=== PATIENT | male | born 1965 | race Caucasian/White ===

== ENCOUNTER 2021-06-01 09:19 | Outpatient (CLI) | payer OTHER, SELFPAY ==
[2021-06-01 10:13] LABS: Cholesterol 191 mg/dL (0-200); HDL Direct 27 mg/dL; Triglycerides 325 mg/dL (<150)
[2021-06-01 10:23] LABS: LDL Cholesterol Direct 107 mg/dL
[2021-06-01 10:45] LABS: Prostate Specific Antigen 6.2 ng/mL (< OR = 4.0)
[2021-06-06 15:09] LABS: Testosterone Free 20.6 pg/mL (35.0-155.0); Testosterone Total 138 ng/dL (250-1100)
== END 2021-06-01 09:20 | disposition home or self-care (01) ==
LOC: ANHLAB 09:23
PROVIDERS: PCP Family Medicine; Visit Provider Physician Assistant Medical
DX: Z13.220 Encounter for screening for lipoid disorders (principal); N40.0 Benign prostatic hyperplasia without lower urinary tract symptoms; R91.8 Other nonspecific abnormal finding of lung field; E29.1 Testicular hypofunction
CPT/HCPCS: 36415; 80061; 84153; 84402; 84403; G0103

== ENCOUNTER 2021-06-29 13:19 | Outpatient (CLI) | payer OTHER, SELFPAY ==
--- NOTE | ~2021-06-29 | XR_ITS ---
EXAMINATION: XR chest 2V 06/29/2021 13:51 INDICATION: Follow-up blood clot from Covid PROCEDURE: 2 view chest COMPARISON: 08/11/2018 FINDINGS: The lungs are clear. The cardiomediastinal silhouette is within normal limits. There are no pleural effusions. There is no pneumothorax suspected. IMPRESSION: 1: NO ACUTE CARDIOPULMONARY DISEASE. Reviewed, dictated and finalized at location B.
== END 2021-06-29 13:20 | disposition home or self-care (01) ==
PROVIDERS: PCP Family Medicine; Visit Provider Physician Assistant Medical
DX: R91.8 Other nonspecific abnormal finding of lung field (principal)
CPT/HCPCS: 71046

== ENCOUNTER 2021-07-13 09:11 | Emergency (ER) | payer OTHER, SELFPAY ==
--- NOTE | ~2021-07-13 | CT_ITS ---
EXAMINATION: CT abdomen pelvis wo con DATE: 07/13/2021 10:34 INDICATION: Left flank pain. TECHNIQUE: Computed tomography (CT) of the abdomen and pelvis was performed without intravenous contr ast. Automated exposure control and iterative reconstruction technique were employed. The dose-length product was 557.82 mGy-cm. COMPARISON: 11/01/2011 FINDINGS: 10 mm nodular density at the resection of bands of discoid atelectasis in the left lower lobe, unclea r whether or focal atelectatic lung, granuloma or neoplasm. Heart size is normal. No pericardial or p leural effusion. Bilateral nephrolithiasis with 3 stones in the right kidney measuring up to 3 mm and single 1-2 mm stone at the lower pole of the left kidney. No ureteral stones or hydronephrosis. 3-4 mm stone versus pair of stones in the proximal left ureter with mild hydroureter but no hydronephrosi s. Bladder is normal. The bowels including the appendix are normal. Small bilateral fat-containing in guinal hernias. No free intraperitoneal gas or fluid. No pathologically enlarged abdominal or pelvic lymphadenopathy. Moderate lumbar spondylosis and mild to moderate bilateral hip osteoarthritis, right greater than left. IMPRESSION: 1. Bilateral nephrolithiasis with 3-4 mm partially obstructing stone in the proximal left ureter with mild left hydroureter but no hydronephrosis 2. 10 mm left lower lobe nodule along an intersecting bands of atelectasis could represent either foc al atelectatic lung, granuloma or neoplasm either benign or malignant. Recommend further evaluation w ith either PET/CT or 3 month follow-up noncontrast chest CT. Reviewed, dictated and finalized at location A. IMPRESSION: 1. Bilateral nephrolithiasis with 3-4 mm partially obstructing stone in the pro ximal left ureter with mild left hydroureter but no hydronephrosis 2. 10 mm left lower lobe nodule along an intersecting bands of atelectasis coul d represent either focal atelectatic lung, granuloma or neoplasm either benign or malignant. Recommend further evaluation with either PET/CT or 3 month follow -up noncontrast chest CT.
--- NOTE | ~2021-07-13 | XR_ITS ---
EXAMINATION: XR abdomen/kub 1V DATE: 07/13/2021 12:34 INDICATION: Left flank pain and hematuria. TECHNIQUE: A supine view of the abdomen on 2 radiographs was obtained. COMPARISON: CT dated 07/13/2021 and KUB dated 11/23/2011 FINDINGS: There is a new density projecting over the left posterior iliac spine likely representing the 2-3 mm stone in the mid left ureter. Unchanged small phlebolith more caudally in the left hemipelvis. The st one seen on CT at the lower pole of the right kidney are unable to be distinguished from the superimp osed mottled pattern of stool at the hepatic flexure of the colon. Normal bowel gas pattern. IMPRESSION: 1. 2-3 mm stone in the mid left ureter projects over the left posterior iliac spine. Reviewed, dictated and finalized at location A. IMPRESSION: 1. 2-3 mm stone in the mid left ureter projects over the left posterior iliac s pine.
[2021-07-13 09:19] VITALS: BP 148/91; PULSE 90; RESP 14; TEMP 36.3; O2SAT 100
[2021-07-13 09:47] LABS: Basophils Percent Auto 0.7 % (0.2-1.2); Eosinophils Absolute Auto 0.1 K/mm3 (0-0.3); Eosinophils Percent Auto 1.9 % (0-4.4); Hematocrit 44.7 % (42.0-52.0); Hemoglobin 15.5 g/dL (14.0-18.0); Immature Granulocyte Absolute 0.03 K/mm3 (0.00-0.031); Immature Granulocyte Percent A 0.5 % (0-0.5); Lymphocytes Percent Auto 20.8 % (18.3-44.2); Mean Corpuscular HGB Conc 34.7 g/dl (32-36); Mean Corpuscular Hemoglobin 30.7 pg (26-34); Mean Corpuscular Volume 88.5 fl (80-100); Mean Platelet Volume 9.3 fl (7.4-10.4); Monocytes Absolute Auto 0.6 K/mm3 (0.1-0.6); Monocytes Percent Auto 9.5 % (2.6-8.5); Neutrophils Absolute Auto 3.8 K/mm3 (1.3-6.7); Neutrophils Percent Auto 66.6 % (45.5-73.1); Platelet Count Result 210 k/mm3 (150-375); Red Blood Count 5.05 M/mm3 (4.6-6.20); Red Cell Distribution Width 13.2 % (11.5-14.5); White Blood Count 5.8 K/mm3 (4.5-10.0)
[2021-07-13 09:54] LABS: Add Urine Microscopic? YES; Appearance Urine Cloudy (Clear); Bacteria Urine Trace /hpf; Bilirubin Urine Negative (Negative); Blood Urine 3+ (Negative); Color Urine Yellow (Yellow); Glucose Urine UA Negative (Negative); Ketones Urine Negative (Negative); Leukocyte Esterase Ur Negative LEU/UL (Negative); Nitrate Urine Negative (Negative); Protein Urine 1+ mg/dL (Negative); RBC Urine >75 /hpf (0-2); Specific Grav Ur 1.013 (1.001-1.035); Urobilinogen Urine Negative mg/dL (<2.0); WBC Urine 0-3 /hpf
[2021-07-13 10:00] LABS: Alanine Aminotransferase 34 U/L (4-50); Albumin Level 4.4 g/dL (3.5-5.1); Alkaline Phosphatase 64 U/L (38-126); Anion Gap 10 mmol/L (8-16); Aspartate Amino Transferase 30 U/L (17-59); Bilirubin,Total 0.9 mg/dL (0.2-1.3); Blood Urea Nitrogen 17 mg/dL (9-20); Calcium 9.1 mg/dL (8.4-10.2); Carbon Dioxide 26 mmol/L (22-30); Chloride 104 mmol/L (98-107); Estimated CRCL calculation 89 ml/min; Estimated Glomerular Filt Rate > 60; Glucose 87 mg/dL (65-110); Lipase 56 U/L (23-300); Potassium 4.1 mmol/L (3.4-5.0); Sodium 140 mmol/L (137-145)
[2021-07-13] MEDS: KETOROLAC 15 MG/ML VIAL (*BKC) IV PUSH (11:41)
[2021-07-13] MEDS: TAMSULOSIN HCL 0.4 MG CAPSULE PO (11:42)
[2021-07-13 12:04] VITALS: BP 134/76; PULSE 89; RESP 18; O2SAT 100
[2021-07-13 12:53] VITALS: BP 148/75; PULSE 78; RESP 16; O2SAT 100
--- NOTE | 2021-07-20 16:59 | ED.ABDPAIN ---
HPI - Abdominal Pain General Chief Complaint: Abdominal Pain Stated Complaint: hematuria Time Seen by Provider: 07/13/21 09:31 Source: patient Mode of arrival: ambulatory Limitations: no limitations History of Present Illness HPI narrative: 55 m here for flank pain, and had episode of hematuria h/o [place], feels similar no fever, no vomiting he is anticoagulated due to a recent pe, is on T replacement Related Data Allergies Allergy/AdvReac Type Severity Reaction Status Date / Time morphine Allergy Unknown rash Verified 05/23/21 08:21 Penicillins Allergy Unknown Rash Verified 05/23/21 08:21 Sulfa (Sulfonamide Allergy Unknown Rash Verified 05/23/21 08:21 Antibiotics) Review of Systems Review of Systems: All systems reviewed & are unremarkable except as noted in HPI and below Constitutional: Constitutional: Reports no additional constitutional complaints, Denies chills, Denies fever(s) and Denies headache(s) Eyes: Eyes: Reports no additional eye complaints and Denies change in vision ENT: Denies headache(s) and Denies sore throat Cardiovascular: Cardiovascular: Denies chest pain and Denies dyspnea Respiratory: Respiratory: Denies cough and Denies dyspnea Gastrointestinal: Gastrointestinal: Reports abdominal pain, Denies diarrhea, Reports nausea and Denies vomiting Genitourinary: Genitourinary: Reports hematuria, Reports dysuria and Denies urinary frequency Musculoskeletal: Musculoskeletal: Denies deformity, Denies arthralgias, Denies joint swelling and Denies numbness Integumentary/Breasts: Skin/Breast: Denies rash and Denies wounds Neurologic: Denies headache(s), Denies focal weakness and Denies numbness Psychiatric: Psychiatric: Reports no additional psychiatric complaints Endocrine: Endocrine: Reports no additional endocrine complaints Hematologic/Lymphatic: Hematologic/Lymphatic: Reports no additional hematologic/lymphatic complaints Allergic/Immunologic: Allergic/Immunologic: Reports no additional allergic/immunologic complaints [facility] Past Medical History Medical History COVID-19 Family History Family History Father Cerebrovascular accident Family history of diabetes mellitus in first degree relative Mother Family history of diabetes mellitus in first degree relative Other Carcinoma of colon Diabetes mellitus Family history of alcoholism Family history of coronary artery disease Family history of heart disease in male family member before age 55 Hypertension Social History Social History Smoking status: Never smoker Alcohol intake: never Substance use: never Substance use type: does not use Additional living arrangements comments: and son Additional occupation/education comments: [employer] Gender identity (if verbalized by the patient): Male Sexual Orientation (if Verbalized by the Patient): Straight or Heterosexual Spiritual care concerns: No Agree to blood products: Yes Exam Const: General: cooperative and alert Orientation/consciousness: patient oriented x3 (alert) HENMT: Head: normal to inspection, normocephalic and atraumatic Ears: external ears normal General nose exam: no epistaxis Eyes: Conjunctivae: conjunctivae normal EOM: EOMs intact bilaterally Neck: Neck: normal visual inspection, supple and no JVD Resp: Effort & Inspection: normal respiratory effort and not labored Auscultation: other (BS =) Cardio: Rate: regular rate Rhythm: regular rhythm Heart sounds: no murmurs GI: GI Palp: Yes Soft to palpation and No Tenderness to palpation present (GI) : General: Yes no CVA tenderness Skin: General skin exam: normal color and no rashes or lesions noted Neuro: General: patient oriented x3 (alert) and moves all extremities Speech: normal speech Extrem: General: normal
== END 2021-07-13 12:54 | disposition home or self-care (01) ==
PROVIDERS: Emergency Provider Emergency Medicine; PCP Family Medicine
DX: N20.1 Calculus of ureter (principal); Z86.16 Personal history of COVID-19; Z86.711 Personal history of pulmonary embolism
CPT/HCPCS: 36415; 74018; 74176; 80053; 81001; 83690; 85025; 87086; 96374; 99284; A9270; J1885

== ENCOUNTER 2021-07-19 13:22 | Outpatient (CLI) | payer OTHER, SELFPAY ==
--- NOTE | ~2021-07-19 | XR_ITS ---
XR abdomen/kub 1V 07/19/2021 13:45 INDICATION: Kidney stones. Hematuria. TECHNIQUE: KUB COMPARISON: 07/13/2021 FINDINGS: Bowel gas pattern is normal. No renal stones are identified. There are pelvic phleboliths. There is no evidence of free air, mass, organomegaly, ascites or obstruction. No abnormal calculi ar e seen. The bones appear intact. There are cholecystectomy clips. IMPRESSION: 1: No acute abdominal abnormality identified. Reviewed, dictated and finalized at location A. GRAPH MESSENGER
== END 2021-07-19 13:23 | disposition home or self-care (01) ==
LOC: ANHIMG 13:28
PROVIDERS: PCP Family Medicine; Visit Provider Nurse Practitioner Adult Health
DX: N20.0 Calculus of kidney (principal)
CPT/HCPCS: 74018

== ENCOUNTER 2021-07-31 13:05 | Outpatient (CLI) | payer OTHER, SELFPAY ==
--- NOTE | ~2021-07-31 | CT_ITS ---
EXAMINATION: CT abdomen pelvis wo con DATE: 07/31/2021 13:26 INDICATION: Hematuria. Kidney stones. Left-sided flank pain. TECHNIQUE: Computed tomography (CT) of the abdomen and pelvis was performed without intravenous contr ast. The dose-length product was 492.63 mGy-cm. Automated exposure control and iterative reconstructi on technique were employed. COMPARISON: CT dated 07/13/2021 FINDINGS: There is left lower lobe atelectasis/scarring. There is a nodular component unchanged from prior examination, possibly rounded atelectasis, although parenchymal nodule not excluded. Heart size is normal. No significant pleural or pericardial effusion. There are cholecystectomy clips. There ar e subtle low-density lesions in the left hepatic lobe, most likely benign cyst or hemangioma statisti broderick. The spleen, pancreas, adrenal glands are unremarkable. There are nonobstructing bilateral emily l stones. There is a 6 mm left mid ureteral stone, image 118. No significant hydronephrosis. No right ureteral stones. Nonobstructive bowel gas pattern. Prostate gland is mildly enlarged. Mild osteoarth ritis of the hips and lumbar spine. No acute bone or joint abnormality. IMPRESSION: 1. No significant change to position of the left mid ureteral stone measuring 6 mm at the level of th e pelvic inlet. 2: Bilateral nephrolithiasis. 3: Stable nodular density left lower lobe with surrounding atelectasis/scarring. Differential diagno sis includes focal atelectasis, rounded atelectasis and parenchymal nodule. Recommend follow-up CT ch est at 3 months or PET/CT scan. Reviewed, dictated and finalized at location A. MACY ACCOUNT DIRECTOR IMPRESSION: 1. No significant change to position of the left mid ureteral stone measuring 6 mm at the level of the pelvic inlet. 2: Bilateral nephrolithiasis. 3: Stable nodular density left lower lobe with surrounding atelectasis/scarrin g. Differential diagnosis includes focal atelectasis, rounded atelectasis and p arenchymal nodule. Recommend follow-up CT chest at 3 months or PET/CT scan.
== END 2021-07-31 13:06 | disposition home or self-care (01) ==
LOC: ANHIMG 13:09
PROVIDERS: PCP Family Medicine; Visit Provider Nurse Practitioner Adult Health
DX: N20.1 Calculus of ureter (principal); N20.0 Calculus of kidney; R91.8 Other nonspecific abnormal finding of lung field
CPT/HCPCS: 74176

== ENCOUNTER → 2021-08-09 02:19 | Outpatient (CLI) | payer OTHER, SELFPAY ==
[2021-08-09 17:58] LABS: SARS-CoV-2 RNA PCR Negative
== END ==
PROVIDERS: PCP Family Medicine; Visit Provider Urology
DX: Z01.812 Encounter for preprocedural laboratory examination (principal); Z20.822 Contact with and (suspected) exposure to COVID-19
CPT/HCPCS: C9803; U0003; U0005

== ENCOUNTER 2021-08-09 09:50 | Outpatient (CLI) | payer OTHER, SELFPAY ==
[2021-08-09 10:28] LABS: Prothrombin Time 12.8 Seconds (11.1-14.7)
[2021-08-09 10:29] LABS: Partial Thromboplastin Time 27.7 SECONDS (22.3-36.8)
== END 2021-08-09 09:51 | disposition home or self-care (01) ==
LOC: ANHSURGERY 09:54
PROVIDERS: PCP Family Medicine; Visit Provider Urology
DX: Z01.812 Encounter for preprocedural laboratory examination (principal); N20.0 Calculus of kidney; Z51.81 Encounter for therapeutic drug level monitoring; Z79.899 Other long term (current) drug therapy
CPT/HCPCS: 36415; 85610; 85730; 87086

== ENCOUNTER 2021-08-11 00:58 | Day surgery (SDC) | payer OTHER, SELFPAY ==
[2021-08-08 14:25] VITALS: BMI 33.0
--- NOTE | 2021-08-08 14:54 | PC.NURSE ---
Report to the Outpatient Waiting Room, entrance under the green pavilion located off [facility], at time 9:00 on date 08/11/21. OR Time: 11:00. - You and your visitor will be asked a series of questions to screen for COVID 19 for your protection. - A mask is required within the hospital. - Only one visitor is allowed at this time. Patient visitors will be guided where to wait when not with patient. Preoperative COVID Testing Requirements: No COVID Test needed if: (proof is required; if not received patient will have Rapid Test prior to entry) - Patient has received COVID Vaccine at least 14 days prior to procedure date or - Patient has positive COVID test result within last 90 days of surgery date. COVID Test needed if above criteria is not met If not COVID vaccinated a COVID test must be conducted within 72 hours of surgery and patient is asked to isolate self from time of testing until procedure. You will go to the [facility] for your COVID testing. The [facility] site is located at the corner of [address] [facility]. COVID TEST 08/09 AT 0955 You will only be called if COVID results are positive and your surgeon may reschedule your elective surgery date. Patients may have clear liquids (water, carbonated beverages, clear teas, apple juice) until 3 hours prior to surgery with a maximum of 20 ounces. - No food from midnight until time of surgery - Infants may have breast milk until 4 hours before surgery, formula 6 hours prior to surgery. - Children will be allowed to drink immediately following surgery. If applicable, please bring a bottle or sippy cup to assist with drinking. Juice, water, soda, and popsicles are readily available. For infants on formula, please bring formula the day of surgery. Pacifiers are allowed. Take the following medications with a SIP of water the morning of surgery: INHALER, WELLBUTRIN Medications to discontinue per physician: VITAMINS/SUPPLEMENTS Date to take last dose: 08/08/[address] SAVAGE Please no make-up, nail welsh, hairspray, perfume, deodorant, or body powder the day of surgery. No jewelry (including any body piercings) or valuables the day of surgery, leave them at home. Please take a shower or bath the night before, or the morning of, surgery with an antibacterial soap. Wear comfortable, loose fitting clothing. Children are encouraged to wear pajamas. - Jewelry must be removed prior to entering the operating room. Rings and piercings that are not removed may be cut off. - The hospital will not accept responsibility for valuables. - Please leave all valuables, including medications, at home the day of surgery. If you are going home after surgery, a licensed fire truck driver must drive you home. - NO public transportation without another adult. - We recommend that an adult stay with you for 24 hours following discharge. - We also recommend that you do not drive, make important decision, drink alcoholic beverages, or take any drugs that were not prescribed by your health care provider for at least 24 hours after your discharge time. For Pediatric surgeries, we recommend two adults accompany the child home (only one inside the building at this time). Follow any additional instructions given to you from your surgeon. Telephone instructions given to LISA PIKE and asked if any additional questions and then verbalized understanding. Patient advised to call surgeon office or pre surgery nurse liaison [phone] if any additional questions.
[2021-08-11] VITALS (8 sets, daily range): BP systolic 111–129; BP diastolic 75–90; PULSE 77–90; RESP 14–16; TEMP 36.8–37.2; O2SAT 95–100
--- NOTE | ~2021-08-11 | XR_ITS ---
EXAMINATION: XR abdomen/kub 1V DATE: 08/11/2021 09:09 INDICATION: Nephrolithiasis for preoperative assessment prior to shockwave lithotripsy. TECHNIQUE: A supine view of the abdomen on 2 radiographs was obtained. COMPARISON: Radiographs dated 07/19/2021, 07/13/[address] studies dated 07/31/2021, 07/13/2021 and 11/14/2011 FINDINGS: Stones evident at the lower pole of the bilateral kidneys on prior CT studies remain occult on the pl ain radiographs with sensitivity decreased by superimposed mottled pattern of colonic stool. A distal left ureteral stone which projects over the cephalad aspect of the left sacral ala on the prior radi ographs is no longer identified. Small focus of sclerosis at a chronic mixed lytic and sclerotic lesi on at the left posterior iliac spine. Cholecystectomy clips in right upper quadrant. Lung bases are c lear. Heart size is normal. IMPRESSION: 1. No evident nephrolithiasis. A prior distal left ureteral stone previously seen projecting over the cephalad left sacral ala is no longer identified in the current study and is either obscured or has passed. Reviewed, dictated and finalized at location A. LIFT OPERATOR IMPRESSION: 1. No evident nephrolithiasis. A prior distal left ureteral stone previously se en projecting over the cephalad left sacral ala is no longer identified in the current study and is either obscured or has passed.
--- NOTE | ~2021-08-11 | CT_ITS ---
EXAMINATION: CT abdomen pelvis wo con EXAM DATE: 08/11/2021 10:02 INDICATION: Left ureteral stone position. TECHNIQUE: Spiral CT of the abdomen and pelvis was performed without contrast. Axial, coronal and sag ittal images were reviewed. The dose-length product (DLP) for this examination was 501.46 mGy-cm. T he exposure was tailored according to patient size (auto mA exposure control), and iterative reconstr uction (ASIR) was used as additional dose reduction technique. Comparison is made to prior examinatio n from 07/13/2021. FINDINGS: There are 3 punctate right calyceal stones up to 2.5 mm in size. There are 2 punctate left calyceal stones. There is a 5 mm stone in the mid aspect of the left ureter. No hydronephrosis at pre sent, could be intermittently obstructing. Mild prostatomegaly. The bladder is unremarkable. Left liver lobe 1.5 cm cyst. Adrenal glands, spleen and pancreas are unremarkable. There are cholecystect kevin clips. There is no retroperitoneal or pelvic lymphadenopathy. Tiny bilateral inguinal fat-cont aining hernias. The appendix is normal. The stomach and small bowel are unremarkable. There is expected amount of c olonic stool. No free intraperitoneal gas. The heart is normal in size. There are no pericardial or pleural effusions. The lung bases are unremarkable. There are no osteoblastic or osteolytic les ions identified. IMPRESSION: 1. Left mid ureteral 5 mm stone, position unchanged. Possibly identified on KUB projecting over left sacroiliac joint. No hydronephrosis. 2. Small bilateral nephrolithiasis. Reviewed, dictated and finalized at location B. MOLDER IMPRESSION: 1. Left mid ureteral 5 mm stone, position unchanged. Possibly identified on KU B projecting over left sacroiliac joint. No hydronephrosis. 2. Small bilateral nephrolithiasis.
--- NOTE | 2021-08-11 06:58 | WPDHPUPDATE1 ---
History and Physical Update Update Date/Time: 08/11/21 06:58 History and Physical has been reviewed, including an updated exam of the patient. There are NO changes in the patient's condition. Risks, benefits, and alternatives have been discussed and questions answered. Patient agrees to proceed with procedure.
--- NOTE | 2021-08-11 09:33 | WPDANESEPPF ---
Anes - Initial Pre Proc Eval Procedure: Operation Date: 08/11/21 11:00 Proposed Procedures p Left Extracorporeal Shock Wave Lithotripsy, Possible Left Stent Placement - Tay Coleman MD Date/Time: 08/11/21 09:33 Surgeon: Tay Coleman MD Pre Op Diagnosis: Left Ureteral Stone Patient Data Age: 55 Gender: M Height: 1.85 m Weight: 110 kg Allergies Allergy/AdvReac Type Severity Reaction Status Date / Time morphine Allergy Unknown rash Verified 08/11/21 09:23 Penicillins Allergy Unknown Rash Verified 08/11/21 09:23 Sulfa (Sulfonamide Allergy Unknown Rash Verified 08/11/21 09:23 Antibiotics) Home Medications Medication Instructions Recorded Confirmed Type fluticasone propionate 44 2 puff INHALATION BID #3 device 12/25/20 08/11/21 Rx mcg/actuation HFA aerosol inhaler testosterone cypionate 200 mg/mL 200 mg IM .2 weeks #10 ml 01/06/21 08/08/21 Rx intramuscular oil apixaban 5 mg tablet 5 mg PO BID #60 tablet 06/12/21 08/11/21 Rx bupropion HCl 150 mg tablet,12 hr 150 mg PO BID #60 tablet 07/10/21 08/11/21 Rx sustained-release tamsulosin 0.4 mg capsule 0.4 mg PO DAILY #14 cap 07/29/21 08/11/21 Rx multivitamin with minerals [Men's 1 tablet PO DAILY 08/08/21 08/11/21 History One Daily] Patient hx anesthesia problems: none Family hx anesthesia problems: none Results Review: All pre-operative results and documents have been reviewed as part of the pre-operative evaluation. REPLACED BY [facility] Past Medical History Medical History (Updated 08/10/21 @ 12:55 by Baudilio Chavez DO) Anxiety Asthma COVID-19 [place] (obstructive sleep apnea) CPAP Surgical History Surgical History (Updated 08/10/21 @ 12:55 by Baudilio Chavez DO) History of cholecystectomy History of fusion of cervical spine C3-4 Family History Family History Father Cerebrovascular accident Family history of diabetes mellitus in first degree relative Mother Family history of diabetes mellitus in first degree relative Other Carcinoma of colon Diabetes mellitus Family history of alcoholism Family history of coronary artery disease Family history of heart disease in male family member before age 55 Hypertension Social History Social History Smoking status: Never smoker Alcohol intake: never Substance use: never Substance use type: does not use Living arrangements: with family Additional living arrangements comments: and son Additional occupation/education comments: [employer] Gender identity (if verbalized by the patient): Male Sexual Orientation (if Verbalized by the Patient): Straight or Heterosexual Spiritual care concerns: No Agree to blood products: Yes Anes - Eval Final PreProcedure Day of Procedure 08/11/21 09:33 Patient weight: obese Heart: regular rate and rhythm Lungs: clear to auscultation and normal air movement Airway: Mallampati scale class II Neurological: alert and oriented Last oral intake: >/= 8 hours ASA classification: III Emergent: no Anesthetic plan: proceed Anesthesia type and monitoring: general LMA and standard monitoring Results Review: All pre-operative results and documents have been reviewed as part of the pre-operative evaluation. Informed Consent: The patient's anesthetic plan and its attendant risks and benefits were discussed with the patient/family/POA. Questions were solicited and answers provided to the satisfaction of the patient/family/POA.
[2021-08-11] MEDS: LACTATED RINGERS 1,000 ML 30 ML IV CONT (09:50)
--- NOTE | 2021-08-11 10:03 | SUR.PREOP ---
To CT per w/c.
[2021-08-11] MEDS: ceFAZolin 2 GM/D5W 50 ML 2 GM/50 ML BAG IVPB (10:41)
--- NOTE | 2021-08-11 11:13 | W.PM.PROC2 ---
Procedure Note - Detailed Date of Procedure 08/11/21 Pre-op Diagnosis Left Ureteral Stone Post-op Diagnosis same Procedure Performed Left ESWL Surgeon Tay Coleman MD Anesthesia general Description of Procedure The patient was brought to the operative suite where he was placed in the supine position on the Dornier lithotripsy table. The focal point of the lithotripter was placed at a 4mm left mid-ureteal calculus. A total of 3000 shocks were delivered at a power setting of 6. There appeared to be good fragmentation of the stone. The patient tolerated the procedure well and was taken to the recovery room in good condition. Drains No Packing No Pathology yes Complications No immediate complications Condition stable Disposition PACU
== END 2021-08-11 13:08 | disposition home or self-care (01) ==
PROVIDERS: PCP Family Medicine; Visit Provider Urology
PROC: (CPT 50590; principal; 2021-08-11 11:00)
DX: N20.1 Calculus of ureter (principal); J45.909 Unspecified asthma, uncomplicated; G47.33 Obstructive sleep apnea (adult) (pediatric); F41.9 Anxiety disorder, unspecified; Z86.16 Personal history of COVID-19; Z98.1 Arthrodesis status; Z79.51 Long term (current) use of inhaled steroids; Z79.01 Long term (current) use of anticoagulants; E66.9 Obesity, unspecified; Z68.32 Body mass index [BMI] 32.0-32.9, adult
CPT/HCPCS: 50590; 36415; 74018; 74176; 85610; 85730; 87086; C9803; J0690; J1100; J2405; J2704; J3010; J7120; U0003; U0005

== ENCOUNTER 2021-08-14 08:11 | Outpatient (CLI) | payer OTHER, SELFPAY ==
--- NOTE | ~2021-08-14 | US_ITS ---
EXAMINATION: US abdomen complete DATE: 08/14/2021 08:37 INDICATION: Hepatomegaly TECHNIQUE: Multiple grayscale and Doppler ultrasound images of the abdomen were obtained. COMPARISON: CT, 08/11/2021 FINDINGS: Bowel gas obscures visualization of the pancreas. The visualized portions of the pancreas a re unremarkable. There is stable 16 mm cyst of the left hepatic lobe. The liver is otherwise normal w ith normal echogenicity and echotexture. No surface nodularity. Normal hepatopetal flow in the main p ortal vein. The normal common bile duct measures 6 mm. The visualized portions of the aorta and infer ior vena cava are normal. The right kidney measures 9.7 x 4.9 x 4.3 cm. The left kidney measures 10.8 x 4.1 x 6.4 cm. The kidne ys demonstrate normal parenchymal echogenicity. There is no hydronephrosis. The spleen is normal in a ppearance and measures 12.9 cm. IMPRESSION: 1. Unremarkable postcholecystectomy right upper quadrant ultrasound. Reviewed, dictated and finalized at location A. ON CREWMEMBER
== END 2021-08-14 08:12 | disposition home or self-care (01) ==
LOC: ANHIMG 08:14
PROVIDERS: PCP Family Medicine; Visit Provider Physician Assistant Medical
DX: R16.0 Hepatomegaly, not elsewhere classified (principal); R16.1 Splenomegaly, not elsewhere classified
CPT/HCPCS: 76700

== ENCOUNTER 2021-08-16 02:03 | Emergency (ER) | payer OTHER, SELFPAY ==
--- NOTE | ~2021-08-16 | CT_ITS ---
EXAMINATION: CT abdomen pelvis w con DATE: 08/16/2021 03:25 INDICATION: Abdominal pain. TECHNIQUE: Computed tomography (CT) of the abdomen and pelvis was performed with 100 mL Omnipaque 350 intravenous contrast. Automated exposure control and iterative reconstruction technique were employe d. The dose-length product was 1478.74 mGy-cm. COMPARISON: CT abdomen and pelvis 08/11/2021, 11/14/2011 FINDINGS: The visualized portions of the lung bases demonstrate mild atelectasis. No pleural effusion . The heart size is normal. No pericardial effusion. There are cysts in the liver measuring up to 1.9 cm. There are changes of cholecystectomy. There is mild fat stranding around the head of the pancrea s, consistent with acute interstitial pancreatitis. The adrenal glands are normal. There is cortical thinning of the kidneys. There are three 2-3 mm stones in right kidney. There is a 2 mm stone in left kidney. There is a 5 mm stone in mid left ureter. The prostate is moderately enlarged. There are no dilated loops of bowel. The appendix is normal. There are no pathologically enlarged lymph nodes. The re is no free intraperitoneal fluid. There is prominent fat in the inguinal canals that may be hernia s. 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 There is mild thoracic spondylosis and moderate lumbar spondylosis. IMPRESSION: 1. Acute interstitial pancreatitis. 2. Stable 5 mm stone in mid left ureter. No hydronephrosis. 3. Small bilateral nonobstructing kidney stones. Reviewed, dictated and finalized at location A. OGY TEACHER
--- NOTE | 2021-08-16 02:07 | ED.ABDPAIN ---
HPI - Abdominal Pain General Chief Complaint: Abdominal Pain Stated Complaint: rt abd pain radiating to back Time Seen by Provider: 08/16/21 02:07 Source: patient Mode of arrival: ambulatory Limitations: no limitations History of Present Illness HPI narrative: Patient is a 56-year-old male with a history of nephrolithiasis, BPH, Covid infection in April 2021, DVT secondary to COVID infection, presenting for evaluation right upper abdominal pain and right flank pain. Patient reports acute onset of the pain this evening time after the patient had ingested some ice cream. Pain is located in the right upper quadrant with radiation to the middle back. Patient denies any associated chest pain, shortness of breath. No pleuritic pain. Denies rib pain. Patient denies any burning sensation or reflux type symptoms. Patient states pain seems different than typical kidney stone type pain. Patient with recent lithotripsy procedure for nephrolithiasis. Patient denies dysuria or hematuria. Patient had been discharged home with oral Vicodin, states that he had been receiving good pain relief without medication. Patient with a history of cholecystectomy. Related Data Home Medications Medication Instructions Recorded Confirmed Men's One Daily 1 tablet PO DAILY 08/08/21 08/11/21 Allergies Allergy/AdvReac Type Severity Reaction Status Date / Time morphine Allergy Unknown rash Verified 08/11/21 09:23 Penicillins Allergy Unknown Rash Verified 08/11/21 09:23 Sulfa (Sulfonamide Allergy Unknown Rash Verified 08/11/21 09:23 Antibiotics) Review of Systems Review of Systems: CONSTITUTIONAL: Denies fever, chills, or sweats. EYES: Denies visual changes, redness, or discharge. ENT: Denies rhinorrhea, congestion, sore throat, or otalgia. CARDIOVASCULAR: Denies chest pain, palpitations, or edema. RESPIRATORY: Denies cough or dyspnea. GASTROINTESTINAL: Reports right upper quadrant abdominal pain, denies nausea, vomiting or diarrhea GENITOURINARY: Denies dysuria or hematuria. SKIN: Denies rash or itching. MUSCULOSKELETAL: Denies back pain, joint pain, or myalgia. NEUROLOGIC: Denies headache, numbness, or weakness. [facility] Past Medical History Medical History Anxiety Asthma COVID-19 LAMONT (obstructive sleep apnea) CPAP Surgical History Surgical History History of cholecystectomy History of fusion of cervical spine C3-4 Family History Family History Father Cerebrovascular accident Family history of diabetes mellitus in first degree relative Mother Family history of diabetes mellitus in first degree relative Other Carcinoma of colon Diabetes mellitus Family history of alcoholism Family history of coronary artery disease Family history of heart disease in male family member before age 55 Hypertension Social History Social History Smoking status: Never smoker Alcohol intake: never Substance use: never Substance use type: does not use Additional living arrangements comments: and son Additional occupation/education comments: [employer] Gender identity (if verbalized by the patient): Male Sexual Orientation (if Verbalized by the Patient): Straight or Heterosexual Spiritual care concerns: No Agree to blood products: Yes Exam Narrative: GENERAL: Awake, alert, conversant HEAD: Normocephalic, atraumatic. EYES: PERRLA and EOMI. ENT: Nares clear, no rhinorrhea or epistaxis. Mucous membranes moist. NECK: Supple. CHEST: No respiratory distress, breathing even and non labored HEART: Regular rate, sinus rhythm ABDOMEN:Non distended, tender in the RUQ, + right flank tenderness EXTREMITIES: Normal range of motion. No edema. SKIN: Warm, dry, no rash. NEURO:No focal deficits. Alert and orie
[2021-08-16 02:17] VITALS: BP 145/101; PULSE 86; RESP 16; TEMP 36.9; O2SAT 99
[2021-08-16] MEDS: SODIUM CHLORIDE 0.9% IV 1,000 ML 999 ML (02:41)
[2021-08-16 02:48] LABS: Basophils Absolute Auto 0.1 K/mm3 (0.0-0.1); Basophils Percent Auto 0.5 % (0.2-1.2); Eosinophils Absolute Auto 0.2 K/mm3 (0-0.3); Eosinophils Percent Auto 1.5 % (0-4.4); Hematocrit 47.6 % (42.0-52.0); Hemoglobin 16.5 g/dL (14.0-18.0); Immature Granulocyte Absolute 0.07 K/mm3 (0.00-0.031); Immature Granulocyte Percent A 0.7 % (0-0.5); Lymphocytes Absolute Auto 1.45 K/mm3 (0.9-3.2); Lymphocytes Percent Auto 14.6 % (18.3-44.2); Mean Corpuscular HGB Conc 34.7 g/dl (32-36); Mean Corpuscular Hemoglobin 30.7 pg (26-34); Mean Corpuscular Volume 88.5 fl (80-100); Mean Platelet Volume 9.4 fl (7.4-10.4); Monocytes Absolute Auto 0.8 K/mm3 (0.1-0.6); Monocytes Percent Auto 8.1 % (2.6-8.5); Neutrophils Absolute Auto 7.4 K/mm3 (1.3-6.7); Neutrophils Percent Auto 74.6 % (45.5-73.1); Platelet Count Result 259 k/mm3 (150-375); Red Blood Count 5.38 M/mm3 (4.6-6.20); Red Cell Distribution Width 13.6 % (11.5-14.5)
[2021-08-16 03:04] LABS: Alanine Aminotransferase 30 U/L (4-50); Albumin Level 4.5 g/dL (3.5-5.1); Alkaline Phosphatase 84 U/L (38-126); Anion Gap 6 mmol/L (8-16); Aspartate Amino Transferase 30 U/L (17-59); Bilirubin,Total 0.5 mg/dL (0.2-1.3); Blood Urea Nitrogen 21 mg/dL (9-20); Calcium 9.5 mg/dL (8.4-10.2); Carbon Dioxide 29 mmol/L (22-30); Chloride 101 mmol/L (98-107); Estimated Glomerular Filt Rate 53; Glucose 105 mg/dL (65-110); Potassium 4.2 mmol/L (3.4-5.0); Sodium 136 mmol/L (137-145)
[2021-08-16 03:05] LABS: Add Urine Microscopic? YES; Appearance Urine Clear (Clear); Bilirubin Urine Negative (Negative); Blood Urine 2+ (Negative); Color Urine Yellow (Yellow); Glucose Urine UA Negative (Negative); Ketones Urine Negative (Negative); Leukocyte Esterase Ur Negative LEU/UL (Negative); Mucus Urine Rare /lpf; Nitrate Urine Negative (Negative); Protein Urine Negative (Negative); RBC Urine 21-50 /hpf (0-2); Specific Grav Ur 1.018 (1.001-1.035); Urobilinogen Urine Negative mg/dL (<2.0); WBC Urine 0-3 /hpf
[2021-08-16 05:17] LABS: Lipase 551 U/L (23-300)
== END 2021-08-16 07:10 | disposition home or self-care (01) ==
PROVIDERS: Emergency Provider Emergency Medicine; PCP Family Medicine
DX: R74.8 Abnormal levels of other serum enzymes (principal); R10.9 Unspecified abdominal pain
CPT/HCPCS: 36415; 74177; 80053; 81001; 83690; 85025; 96360; 99284; J7030; Q9967

== ENCOUNTER 2021-09-05 11:50 | Outpatient (CLI) | payer OTHER, SELFPAY ==
--- NOTE | ~2021-09-05 | XR_ITS ---
EXAMINATION: XR abdomen/kub 1V INDICATION: Bilateral kidney stones TECHNIQUE: Supine views of the abdomen were obtained on 2 radiographs. COMPARISON: CT, 08/16/2021 FINDINGS: No definite urolithiasis is identified. The left ureteral stone identified on the compariso n CT is not definitely seen. The bowel gas pattern is normal. Cholecystectomy clips are present in th e right upper quadrant. There is mild osteoarthritis of the hips. IMPRESSION: 1. No definite urolithiasis identified. Reviewed, dictated and finalized at location F. WORKER
== END 2021-09-05 11:51 | disposition home or self-care (01) ==
LOC: ANHIMG 11:55
PROVIDERS: PCP Family Medicine; Visit Provider Urology
DX: N20.0 Calculus of kidney (principal)
CPT/HCPCS: 74018

== ENCOUNTER 2021-12-22 14:45 | Outpatient (CLI) | payer OTHER, SELFPAY ==
--- NOTE | ~2021-12-22 | XR_ITS ---
XR abdomen/kub 1V DATE: 12/22/2021 15:04 INDICATION: Recent left urinary tract stone. History of kidney stones. TECHNIQUE: Supine AP rejection, 2 views COMPARISON: 09/05/2021 KUB 08/16/2021 CT abdomen pelvis FINDINGS: No obvious urinary tract calcified calculus is noted. Noncontrast CT abdomen pelvis would b e more sensitive for detection of urinary tract calculi. Status post cholecystectomy. The psoas shadows are intact. No visceromegaly is detected. No evidence of bowel obstruction. Included skeletal structures are unremarkable. IMPRESSION: No significant abnormality Reviewed, dictated and finalized at Location A. Reviewed, dictated and finalized at location A. IMPRESSION: No significant abnormality
== END 2021-12-22 14:46 | disposition home or self-care (01) ==
LOC: ANHIMG 14:48
PROVIDERS: PCP Family Medicine; Visit Provider Urology
DX: Z87.442 Personal history of urinary calculi (principal)
CPT/HCPCS: 74018

== ENCOUNTER 2022-08-14 12:48 | Outpatient (CLI) | payer OTHER, SELFPAY ==
--- NOTE | ~2022-08-14 | CT_ITS ---
EXAMINATION: CT knee LT w con DATE: 08/14/2022 14:00 INDICATION: Left knee pain. Chondromalacia. TECHNIQUE: High resolution computed tomography (CT) arthrogram of the left knee was performed with in tra-articular but without intravenous contrast. Details of the contrast mixture and fluoroscopic guid ed joint injection have been dictated separately. Additional sagittal and coronal reconstructions wer e performed. Automated exposure control and iterative reconstruction technique were employed. The dos e-length product was 554.21 mGy-cm. COMPARISON: Left knee radiographs dated 05/22/2022 and prior noncontrast left knee CT dated 02/29/2016 FINDINGS: Bone alignment is normal. No fracture. Mild synovitis at the suprapatellar pouch. No loose bodies [place] ntified. Contrast extends into a small Dodge's cyst. Medial compartment: Mild medial extrusion of the medial meniscal body. There is an irregular contour to the articular renetta faces of the inner third of the body and posterior horn of the medial meniscus with frayed appearance . No significant intrasubstance extension of contrast to suggest a deeper or more extensive meniscal tear. Deep chondral fissuring ulceration involving greater than 50% the cartilage thickness superimpo sed over more diffuse mild partial thickness cartilage loss at the central weightbearing medial femor al condyle. There is a tiny focus of reticular cystlike change underlying the posterior margin of the fissuring. There is additional deep chondral ulceration with more prominent but still relatively sma ll subarticular cystlike changes at the medial aspect of the medial tibial plateau. Lateral compartment: The lateral meniscus is normal. There is approximately 1.5 cm long deep chondral fissure extending sa gittally along the central weightbearing lateral femoral condyle. Again seen is a tiny subarticular l ucency underlying the anterior weightbearing lateral femoral condyle without evident overlying chondr omalacia. Cartilage along the lateral patellar facet appears normal. Patellofemoral compartment: Shallow chondral fissure along the medial side of the lateral patellar facet which involves less than 50% the cartilage thickness and without degenerative subchondral changes. Trochlear cartilage appear s normal. IMPRESSION: 1. Frayed appearance with irregular articular surface but without significant deeper intrasubstance e xtension of contrast along the inner third of the body and posterior horn of the medial meniscus. 2. Mild osteoarthritis with moderate and high-grade chondromalacia in the medial compartment along natalie th the weightbearing medial femoral condyle and medial tibial plateau and small focus of moderate gra de chondromalacia at the lateral patellar facet. 3. Small Dodge's cyst. Reviewed, dictated and finalized at location A. LEVEL CLINICIAN IMPRESSION: 1. Frayed appearance with irregular articular surface but without significant d eeper intrasubstance extension of contrast along the inner third of the body an d posterior horn of the medial meniscus. 2. Mild osteoarthritis with moderate and high-grade chondromalacia in the media l compartment along both the weightbearing medial femoral condyle and medial ti bial plateau and small focus of moderate grade chondromalacia at the lateral pa tellar facet. 3. Small Dodge's cyst.
--- NOTE | ~2022-08-14 | XR_ITS ---
EXAMINATION: XR fl inj knee LT for MR/CT DATE: 08/14/2022 14:02 INDICATION: Left knee pain TECHNIQUE: A time-out was performed to verify the patient's name, date of , and procedure to b e performed. The procedure including the risks, benefits, and alternatives was discussed with the pat ient. Risks discussed included bleeding and infection. The patient understood the risks and agreed to proceed. The skin overlying the lateral side of the left knee joint was prepped and draped in usual sterile fashion. Anesthetic was administered with 1% lidocaine subcutaneously. A 22 G needle was a dvanced under fluoroscopic guidance into the joint. Injection of 45 mL 7:4:1 mixture of sterile sali ne:Omnipaque 240:1% lidocaine was injected with intra-articular injection confirmed with intermittent fluoroscopy. The needle was removed and the entry site was cleaned and dressed. There were no immed iate complications. Fluoroscopy exposure time was 0.1 minutes. The total number of images was 7. FINDINGS: Real-time fluoroscopy demonstrates the needle in the left knee joint. IMPRESSION: 1. Successful left knee joint injection of iodinated contrast mixture for subsequent CT of the diaphr agm which will be dictated separately. Reviewed, dictated and finalized at location A. RISK AND ASSURANCE SENIOR MANAGER IMPRESSION: 1. Successful left knee joint injection of iodinated contrast mixture for subse quent CT of the diaphragm which will be dictated separately.
== END 2022-08-14 12:49 | disposition home or self-care (01) ==
LOC: ANHIMG 12:57
PROVIDERS: PCP Family Medicine; Visit Provider Nurse Practitioner
DX: M25.562 Pain in left knee (principal); M71.22 Synovial cyst of popliteal space [Baker], left knee; M17.12 Unilateral primary osteoarthritis, left knee; M94.262 Chondromalacia, left knee
CPT/HCPCS: 20610; 73701; 77002; Q9966

== ENCOUNTER 2022-10-03 12:22 | Outpatient (CLI) | payer OTHER, SELFPAY ==
--- NOTE | 2022-10-03 12:49 | ECHO_ITS ---
Patient Info Name: Tray Crisostomo Age: 57 years : 1965 Gender: Male Ht: 73 in Wt: 250 lbs BSA: 2.45 m2 HR: 78 bpm BP: 122 / 78 mmHg Technical Quality: Fair Exam Date: 10/03/2022 12:53 PM Exam Location: [facility] Pulmonary Patient Status: Outpatient Admit Date: 10/03/2022 Staff Ordering Physician: Francisco Lou NP Marketing Database Coordinator: Sara Pope RDCS Attending Provider: Francisco Lou NP Referring Physician: Carmine WHEAT; Exam Type: CA echo doppler color flow Study Info Indications - abnormal cta Right heart strain Complete two-dimensional, color flow and Doppler transthoracic echocardiogram is performed. Summary 1. Complete two-dimensional, color flow and Doppler transthoracic echocardiogram is performed. 2. Left ventricular chamber dimension is normal. 3. Left ventricular systolic function is normal, estimated at 55-60%. 4. The left ventricular diastolic function is grade I diastolic dysfunction. 5. E/e' 6 is not elevated. 6. Right ventricular chamber dimension is mildly enlarged. 7. There is trace aortic valve regurgitation. 8. No pulmonary hypertension, estimated pulmonary arterial systolic pressure is 29 mmHg. Left Ventricle E/e' 6 is not elevated. Left ventricular chamber dimension is normal. Left ventricular systolic function is normal, estimated at 55-60%. The left ventricular diastolic function is grade I diastolic dysfunction. Right Ventricle Right ventricular systolic function is normal and with normal TAPSE 2.3 cm. Right ventricular chamber dimension is mildly enlarged. Left Atria Left atrial chamber dimension is normal. Right Atria Right atrial chamber dimension is normal. Aortic Valve The aortic valve is trileaflet. There is no aortic valve stenosis. There is trace aortic valve regurgitation. Pulmonic Valve There is no pulmonic regurgitation. Mitral Valve There is no mitral valve stenosis. There is no mitral valve regurgitation. Tricuspid Valve There is no tricuspid valve regurgitation. No pulmonary hypertension, estimated pulmonary arterial systolic pressure is 29 mmHg. Pericardium/Pleural There is no pericardial effusion. Inferior Vena Cava Normal inferior vena cava with >50% collapse upon inspiration consistent with normal right atrial pressure, 5 mmHg. Aorta The aortic root size at the sinus of Valsalva is normal. Left Ventricular Outflow Tract Name Value Normal LVOT 2D LVOT Diameter 2.1 cm LVOT Doppler LVOT Peak Gradient 3 mmHg LVOT Mean Gradient 2 mmHg LVOT VTI 16 cm LVOT VTI/AV VTI Ratio 0.7 LVOT Stroke Volume 58 ml LVOT CO 13.6 l/min LVOT CI 5.5 l/min/m2 Pulmonic Valve Name Value Normal PV Doppler
== END 2022-10-03 12:23 | disposition home or self-care (01) ==
LOC: ANHCARD 12:26
PROVIDERS: PCP Family Medicine; Visit Provider Nurse Practitioner Family
DX: I26.99 Other pulmonary embolism without acute cor pulmonale (principal); I51.7 Cardiomegaly
CPT/HCPCS: 93306

== ENCOUNTER 2023-01-21 07:33 | Day surgery (SDC) | payer OTHER, SELFPAY ==
[2022-10-04 08:16] VITALS: BMI 32.7
[2023-01-02 14:24] VITALS: BMI 33.1
--- NOTE | 2023-01-02 14:38 | PC.NURSE ---
PT AWARE HE IS TO STOP ELIQUIS 2 DAYS PRIOR TO COLONOSCOPY PER DR POLLACK AND DR RENTERIA. PT VERBALIZED UNDERSTANDING. PT ALSO SEEMED RUSHED DURING INTERVIEW. RN ASKED PT IF WE NEEDED TO DO INTERVIEW ANOTHER DAY. PT STATED NO. INTERVIEW COMPLETED.
--- NOTE | 2023-01-21 07:46 | WPDANESEPPF ---
Anes - Initial Pre Proc Eval Procedure: Operation Date: 01/21/23 09:30 Proposed Procedures p Diagnostic Colonoscopy - Erick Lucia MD Date/Time: 01/21/23 07:46 Surgeon: Erick Lucia MD Pre Op Diagnosis: Histoy of colon polyps Patient Data Age: 57 Gender: M Height: 1.85 m Weight: 114 kg Allergies Allergy/AdvReac Type Severity Reaction Status Date / Time morphine Allergy Unknown rash Verified 01/21/23 08:10 Penicillins Allergy Unknown Rash Verified 01/21/23 08:10 Sulfa (Sulfonamide Allergy Unknown Rash Verified 01/21/23 08:10 Antibiotics) Home Medications Medication Instructions Recorded Confirmed Type bupropion HCl 150 mg 24 hr tablet, 150 mg PO QAM #90 tabs 11/12/22 01/21/23 Rx extended release (Wellbutrin XL) apixaban 5 mg tablet (Eliquis) 5 mg PO BID #180 tabs 01/12/23 01/21/23 Rx Patient hx anesthesia problems: none Family hx anesthesia problems: none Results Review: All pre-operative results and documents have been reviewed as part of the pre-operative evaluation. [facility] Past Medical History Medical History Adult BMI 33.0-33.9 kg/sq m Allergies Anxiety Asthma BMI 32.0-32.9,adult COVID-19 History of kidney stones LAMONT (obstructive sleep apnea) CPAP Screen for colon cancer Surgical History Surgical History History of cholecystectomy History of cochlear implant 2021 History of fusion of cervical spine C3-4 Family History Family History Father Cerebrovascular accident Family history of diabetes mellitus in first degree relative Diabetes mellitus Mother Family history of diabetes mellitus in first degree relative Dementia Family hx of colon cancer Hyperlipidemia Depression Sibling Hyperlipidemia Multiple sclerosis Diabetes mellitus Other Diabetes mellitus Cancer Depression Heart disease Grandparent Cancer Cerebrovascular accident Other Carcinoma of colon Family history of alcoholism Family history of coronary artery disease Family history of heart disease in male family member before age 55 Hypertension Social History Social History Smoking status: Never smoker Second hand tobacco smoke exposure: No Alcohol intake: never Substance use: never Substance use type: does not use Living arrangements: with family Additional living arrangements comments: and son Occupation/Education: occupation 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 Gender identity (if verbalized by the patient): Male Sexual Orientation (if Verbalized by the Patient): Straight or Heterosexual Spiritual care concerns: No Agree to blood products: Yes Anes - Eval Final PreProcedure Day of Procedure 01/21/23 07:46 Patient weight: obese Heart: regular rate and rhythm Lungs: clear to auscultation Airway: Mallampati scale class III Neurological: alert and oriented Last oral intake: >/= 8 hours ASA classification: III Emergent: no Anesthetic plan: proceed Anesthesia type and monitoring: general GIVS and standard monitoring Results Review: All pre-operative results and documents have been reviewed as part of the pre-operative evaluation. Informed Consent: The patient's anesthetic plan and its attendant risks and benefits were discussed with the patient/family/POA. Questions were solicited and answers provided to the satisfaction of the patient/family/POA.
[2023-01-21 08:16] VITALS: BMI 33.0
[2023-01-21 08:20] VITALS: BP 146/98; PULSE 80; RESP 18; TEMP 36.6; O2SAT 100
[2023-01-21] MEDS: LACTATED RINGERS 1,000 ML 150 ML IV CONT (08:40)
--- NOTE | 2023-01-21 08:48 | PM.HPGS ---
History of Present Illness History of Present Illness Consent: Risks, benefits, and alternatives have been discussed and questions answered. Patient agrees to proceed with procedure. Chief complaint: Histoy of colon polyps Narrative: Tray Crisostomo is a 57 year old male Presents for screening colonoscopy. Patient's current weight appetite and bowel movements are normal. Patient denies abdominal pain. He has had no bleeding. Patient has a very distant history of adenomatous colon polyp in 2002. Most recent colonoscopy 2011 was unremarkable. Patient presents today for surveillance exam. Family history is significant for polyps in his uncle and cousin who have had cancers in polyps. Patient is a past history of pulmonary embolus for which she is chronically on Eliquis anticoagulation. Review of Systems Review of Systems: Review of systems noncontributory. [facility] Past Medical History Medical History Adult BMI 33.0-33.9 kg/sq m Allergies Anxiety Asthma BMI 32.0-32.9,adult COVID-19 History of kidney stones LAMONT (obstructive sleep apnea) CPAP Screen for colon cancer Surgical History Surgical History History of cholecystectomy History of cochlear implant 2021 History of fusion of cervical spine C3-4 Family History Family History Father Cerebrovascular accident Family history of diabetes mellitus in first degree relative Diabetes mellitus Mother Family history of diabetes mellitus in first degree relative Dementia Family hx of colon cancer Hyperlipidemia Depression Sibling Hyperlipidemia Multiple sclerosis Diabetes mellitus Other Diabetes mellitus Cancer Depression Heart disease Grandparent Cancer Cerebrovascular accident Other Carcinoma of colon Family history of alcoholism Family history of coronary artery disease Family history of heart disease in male family member before age 55 Hypertension Social History Social History Smoking status: Never smoker Second hand tobacco smoke exposure: No Alcohol intake: never Substance use: never Substance use type: does not use Living arrangements: with family Additional living arrangements comments: and son Occupation/Education: occupation 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 Gender identity (if verbalized by the patient): Male Sexual Orientation (if Verbalized by the Patient): Straight or Heterosexual Spiritual care concerns: No Agree to blood products: Yes Meds Home Medications and Allergies Home Medications Medication Instructions Recorded Confirmed Type bupropion HCl 150 mg 24 hr tablet, 150 mg PO QAM #90 tabs 11/12/22 01/21/23 Rx extended release (Wellbutrin XL) apixaban 5 mg tablet (Eliquis) 5 mg PO BID #180 tabs 01/12/23 01/21/23 Rx Allergies Allergy/AdvReac Type Severity Reaction Status Date / Time morphine Allergy Unknown rash Verified 01/21/23 08:10 Penicillins Allergy Unknown Rash Verified 01/21/23 08:10 Sulfa (Sulfonamide Allergy Unknown Rash Verified 01/21/23 08:10 Antibiotics) Vital Signs Vital Signs - 24 hr 01/21/23 08:20 Temperature 97.8 F Pulse Rate 80 Respiratory Rate 18 Blood Pressure 146/98 H Pulse Oximetry 100 Oxygen Delivery Room Air Exam Narrative: Physical exam reveals patient to be alert. Vital signs stable. HEENT exam is unremarkable. Patient is anicteric. Lungs are clear to auscultation and percussion. Heart is without murmur or extra sounds. Abdomen bowel sounds are present soft nontender with no organomegaly. Digital external rectal exam is normal. Assessment and Plan Assessment and plan (1) Screen for colon cancer: Code(s): Z12.11 - Encounter fo
--- NOTE | 2023-01-21 09:06 | SUR.PREOP ---
0830, LATE NOTE, DR POLLACK NOTIFIED OF PT STOPPING ELIQUIS 2 DAYS PRIOR. LAST DOSE WAS SaturdayJANUARY 18.
[2023-01-21] MEDS: SIMETHICONE ORAL SUSPENSION 20 MG/0.3 ML 30 ML BOTTLE 0.6 ML IRRIGATION (09:09)
[2023-01-21 09:21] VITALS: BP 117/78; PULSE 86; RESP 18; O2SAT 100
[2023-01-21 09:31] VITALS: BP 127/67; PULSE 85; RESP 20; O2SAT 99
[2023-01-21 09:41] VITALS: BP 118/79; PULSE 77; RESP 20; O2SAT 100
--- NOTE | 2023-01-21 12:00 | WPDANESPN ---
Anes - Prog Note Post-Op Date/Time: 01/21/23 12:00 Cardiovascular status: normal Respiratory status: normal Airway patency: baseline Mental status: baseline Post-Op hydration status: normal Vital Signs: Last Vital Signs Temp 36.6 C 01/21/23 08:20 Pulse 77 01/21/23 09:41 Resp 20 01/21/23 09:41 BP 118/79 01/21/23 09:41 Pulse Ox 100 01/21/23 09:41 O2 Del Method Room Air 01/21/23 09:41 Pain Score (VAS): 0 I/O: Intake & Output 01/20/23 01/21/23 01/21/23 23:59 07:59 15:59 Intake Total 500 Balance 500 Post-procedural complaints: none Patient Feedback: Patient satisfied with anesthetic care. Other Findings: Patient vital signs back to baseline. Patient denies nausea and vomiting. Patient's pain under control. Patient OK for discharge.
== END 2023-01-21 10:06 | disposition home or self-care (01) ==
PROVIDERS: PCP Family Medicine; Visit Provider Internal Medicine Gastroenterology
PROC: 0DJD8ZZ Inspection of Lower Intestinal Tract, Via Natural or Artificial Opening Endoscopic (ICD-10-PCS; CPT 45378; principal; 2023-01-21 09:30)
DX: Z12.11 Encounter for screening for malignant neoplasm of colon (principal)
CPT/HCPCS: 45385

== ENCOUNTER 2023-01-21 08:00 | Outpatient (NON) | payer OTHER, SELFPAY | END 2023-01-21 08:01 | disposition home or self-care (01) | LOC: ANHLAB 01-22 07:33 | PROVIDERS: PCP Family Medicine; Visit Provider Internal Medicine Gastroenterology | DX: Z12.11 Encounter for screening for malignant neoplasm of colon (principal) | CPT/HCPCS: 88305 ==

== ENCOUNTER 2023-04-03 09:31 | Outpatient (CLI) | payer OTHER, SELFPAY ==
--- NOTE | ~2023-04-03 | XR_ITS ---
XR abdomen/kub 1V 04/03/2023 09:50 INDICATION: Flank pain TECHNIQUE: KUB COMPARISON: None FINDINGS: Bowel gas pattern is normal. There is no evidence of free air, mass, organomegaly, ascites or obstruction. No abnormal calculi are seen. The bones appear intact. There are cholecystectomy c lips. IMPRESSION: 1: No acute abdominal abnormality identified. Reviewed, dictated and finalized at location A.
== END 2023-04-03 09:32 | disposition home or self-care (01) ==
PROVIDERS: PCP Family Medicine; Visit Provider Physician Assistant Medical
DX: R10.9 Unspecified abdominal pain (principal); Z87.442 Personal history of urinary calculi
CPT/HCPCS: 74018

== ENCOUNTER 2023-04-13 07:28 | Outpatient (CLI) | payer OTHER, SELFPAY ==
--- NOTE | ~2023-04-13 | CT_ITS ---
CT of the Abdomen and Pelvis: Indication: Renal stones Technique: 2.5 mm axial scans were obtained through the abdomen and pelvis prior to and following fo llowing intravenous administration of 130 cc of Omnipaque 350. Dose reduction technique was used on t his scan by utilizing automated exposure control and iterative reconstruction technique. The dose-clarissa gth product (DLP) was 2969.92 mGy-cm. COMPARISON: 08/16/2021 Findings: Scans through the lung bases are unremarkable. Several small hepatic cysts are present. Cholecystectomy clips noted. There are multiple small bilate ral nonobstructing renal stones, measuring up to approximately 4 mm in maximum diameter. No ureteral stone or hydronephrosis on either side. The spleen, pancreas, and adrenal glands are within normal li mits. No evidence of aortic aneurysm. No lymphadenopathy. No bowel obstruction or bowel wall thickening. There is no evidence to suggest acute appendicitis. Images through the pelvis were performed. Urinary bladder unremarkable. Prostate gland and seminal ve sicles are unremarkable. Impression: Bilateral nonobstructing renal stones, as detailed above. Reviewed, dictated and finalized at location M. Impression: Bilateral nonobstructing renal stones, as detailed above.
== END 2023-04-13 07:29 | disposition home or self-care (01) ==
PROVIDERS: PCP Family Medicine; Visit Provider Physician Assistant Medical
DX: R10.9 Unspecified abdominal pain (principal); R31.9 Hematuria, unspecified; Z87.442 Personal history of urinary calculi; N20.0 Calculus of kidney
CPT/HCPCS: 74178; Q9967

== ENCOUNTER 2023-10-18 08:59 | Outpatient (CLI) | payer OTHER, SELFPAY ==
--- NOTE | ~2023-10-18 | US_ITS ---
Abdominal Sonogram: Real-time sonographic imaging of the abdomen was performed. Clinical History: Abdominal pain Findings: The liver appears echogenic, with no evidence of solid mass lesion or bile duct dilatation . Left hepatic lobe cyst present measuring 2.4 cm with probable single thin septation. Main portal ve in demonstrates normal direction of flow. The spleen is normal in size without evidence of focal lesi on. The gallbladder is absent, compatible prior cholecystectomy. The common bile duct measures 7 mm. The visualized pancreas, aorta, and IVC are unremarkable. The right kidney measures 11.5 cm in clarissa gth and the left kidney measures 11.0 cm. There is no hydronephrosis or renal calculus. Impression: Diffuse fatty infiltration of liver. Reviewed, dictated and finalized at [facility]. [employer] Impression: Diffuse fatty infiltration of liver.
== END 2023-10-18 09:00 | disposition home or self-care (01) ==
PROVIDERS: PCP Family Medicine; Visit Provider Nurse Practitioner Family
DX: R10.11 Right upper quadrant pain (principal); K76.0 Fatty (change of) liver, not elsewhere classified; K21.9 Gastro-esophageal reflux disease without esophagitis; F33.0 Major depressive disorder, recurrent, mild; H91.93 Unspecified hearing loss, bilateral
CPT/HCPCS: 76700

== ENCOUNTER 2023-12-26 10:13 | Outpatient (CLI) | payer OTHER, SELFPAY ==
--- NOTE | ~2023-12-26 | XR_ITS ---
EXAMINATION: XR lumbar spine min 4V DATE: 12/26/2023 10:40 INDICATION: Low back pain, unspecified. Left-sided sciatica. TECHNIQUE: 5 views of lumbar spine were obtained. COMPARISON: None. FINDINGS: There is 3 mm retrolisthesis of L2 on L3 and 3 mm anterolisthesis of L3 on L4. There is mil d chronic anterior wedging of T12 and L1 vertebral bodies. There is moderately decreased disc height at L2-L3 and mildly decreased disc height at L3-L4 and L5-S1. There is multilevel facet joint osteoar thritis, severe at multiple levels. Surgical clips in the right upper quadrant are likely from cholec ystectomy. IMPRESSION: 1. Moderate lumbar spondylosis. Reviewed, dictated and finalized at location E.
== END 2023-12-26 10:14 | disposition home or self-care (01) ==
LOC: ANHIMG 10:14
PROVIDERS: PCP Family Medicine; Visit Provider Nurse Practitioner Family
DX: M54.50 Low back pain, unspecified (principal); M43.06 Spondylolysis, lumbar region
CPT/HCPCS: 72110

== ENCOUNTER 2024-01-15 06:33 | Outpatient (CLI) | payer OTHER, SELFPAY ==
--- NOTE | ~2024-01-15 | CT_ITS ---
EXAMINATION: CT cervical spine wo con DATE: 01/15/2024 06:58 INDICATION: Arthrodesis status. TECHNIQUE: Computed tomography (CT) of the cervical spine was performed without intravenous contrast. Automated exposure control and iterative reconstruction technique were employed. The dose-length pro duct was 523.67 mGy-cm. COMPARISON: None FINDINGS: There is a 11 mm subcutaneous cyst in right posterior neck, likely a sebaceous cyst. There are bilateral cochlear implants. There are bilateral mastoid effusions. There is kyphosis of cervical spine. There are changes of anterior fusion procedure at C3-C4 with interbody devices and healed int erbody bone graft. Vertebral body heights are normal. There is mildly decreased disc height at C4-C5, severely decreased disc height at C5-C6, and moderately decreased disc height at C6-C7. The followin g disc levels are specifically discussed: C2-C3: There is mild bilateral uncovertebral joint osteoarthritis. There is mild right and severe lef t facet joint osteoarthritis. There is mild left neural foraminal stenosis. There is no central canal stenosis. C3-C4: There is mild bilateral uncovertebral joint hypertrophy. There is ankylosis of the facet joint and mild hypertrophy. There is mild left neural foraminal stenosis. There is no central canal stenos is. C4-C5: There is mild bilateral uncovertebral joint osteoarthritis. There is mild bilateral facet join t osteoarthritis. There is mild right neural foraminal stenosis. There is mild central canal stenosis . C5-C6: There is severe bilateral uncovertebral joint osteoarthritis. There is moderate right and mild left facet joint osteoarthritis. There is moderate bilateral neural foraminal stenosis. There is mil d central canal stenosis. C6-C7: There is mild bilateral uncovertebral joint osteoarthritis. There is moderate bilateral facet joint osteoarthritis. There is mild bilateral neural foraminal stenosis. There is mild central canal stenosis. C7-T1: There is no uncovertebral joint osteoarthritis. There is severe bilateral facet joint osteoart hritis. There is mild bilateral neural foraminal stenosis. There is no central canal stenosis. IMPRESSION: 1. Severe cervical spondylosis. 2. Solitary healed anterior fusion procedure at C3-C4. Reviewed, dictated and finalized at location A.
== END 2024-01-15 06:34 | disposition home or self-care (01) ==
PROVIDERS: PCP Family Medicine; Visit Provider Nurse Practitioner Family
DX: M43.02 Spondylolysis, cervical region (principal); Z98.1 Arthrodesis status
CPT/HCPCS: 72125

== ENCOUNTER 2024-05-01 00:07 | Day surgery (SDC) | payer OTHER, SELFPAY ==
[2024-04-13 16:10] VITALS: BMI 32.4
--- NOTE | 2024-04-20 16:22 | PC.NURSE ---
Spoke with patient regarding medication Eliquis. Pt. verbalizes understanding that the last dose of Eliquis is to be taken on 04/28/2024 and the Endoscopist will instruct them when to restart after the procedure.
[2024-05-01 10:53] VITALS: BP 131/89; PULSE 80; RESP 18; TEMP 36.1; O2SAT 100
[2024-05-01] MEDS: LACTATED RINGERS 1,000 ML 150 ML IV CONT (11:07)
--- NOTE | 2024-05-01 11:13 | WPDANESEPPF ---
Anes - Initial Pre Proc Eval Procedure: Operation Date: 05/01/24 12:30 Proposed Procedures p Esophagogastroduodenoscopy - Fidencio Pascual MD Date/Time: 05/01/24 11:13 Surgeon: Fidencio Pascual MD Pre Op Diagnosis: GERD, RUQ Pain Patient Data Age: 58 Gender: M Height: 1.85 m Weight: 110.7 kg Last Vital Signs Temp 97 F L 05/01/24 10:53 Pulse 80 05/01/24 10:53 Resp 18 05/01/24 10:53 BP 131/89 05/01/24 10:53 Pulse Ox 100 05/01/24 10:53 O2 Del Method Room Air 05/01/24 10:53 Allergies Allergy/AdvReac Type Severity Reaction Status Date / Time morphine Allergy Unknown rash Verified 05/01/24 10:52 Penicillins Allergy Unknown Rash Verified 05/01/24 10:52 Sulfa (Sulfonamide Allergy Unknown Rash Verified 05/01/24 10:52 Antibiotics) Home Medications Medication Instructions Recorded Confirmed Type albuterol sulfate 90 mcg/actuation 1 puff inhalation Q4H PRN 12/26/23 05/01/24 Rx aerosol inhaler (ProAir HFA) shortness of breath or wheezing #8.5 grams apixaban 5 mg tablet (Eliquis) 5 mg PO BID #180 tabs 04/10/24 05/01/24 Rx bupropion HCl 150 mg 24 hr tablet, 150 mg PO QAM #90 tabs 04/10/24 05/01/24 Rx extended release (Wellbutrin XL) Patient hx anesthesia problems: none Family hx anesthesia problems: none Results Review: All pre-operative results and documents have been reviewed as part of the pre-operative evaluation. [facility] Past Medical History Medical History Adult BMI 33.0-33.9 kg/sq m Allergies Anxiety Asthma Asymptomatic proteinuria BMI 32.0-32.9,adult BMI 34.0-34.9,adult BMI 35.0-35.9,adult COVID COVID-19 Excessive cerumen in both ear canals Excessive cerumen in left ear canal History of kidney stones Hx of adenomatous colonic polyps Left ureteral stone Lesion of liver greater than 1 cm in diameter MDD (major depressive disorder), recurrent episode, mild NAFLD (nonalcoholic fatty liver disease) LAMONT (obstructive sleep apnea) CPAP Otitis media, right Pulmonary embolus Screen for colon cancer Surgical History Surgical History H/O colonoscopy History of cholecystectomy History of cochlear implant 2021 History of fusion of cervical spine C3-4 Family History Family History Father Cerebrovascular accident Family history of diabetes mellitus in first degree relative Diabetes mellitus Mother Family history of diabetes mellitus in first degree relative Dementia Family hx of colon cancer Hyperlipidemia Depression Sibling Hyperlipidemia Multiple sclerosis Diabetes mellitus Rheumatoid arthritis Skin cancer Lupus Other Diabetes mellitus Cancer Depression Heart disease Grandparent Cancer Cerebrovascular accident Other Carcinoma of colon Family history of alcoholism Family history of coronary artery disease Family history of heart disease in male family member before age 55 Hypertension Social History Social History Smoking status: Never smoker Second hand tobacco smoke exposure: No Alcohol intake: never Substance use: never Substance use type: does not use Do You Feel Safe in your Home?: Yes Lack of Transportation: No Lack of Food: Never True Current Housing: I Have Housing Concerned About Future Housing: No Difficulty Paying Gas/Electric Bills: No Difficulty Paying for Meds: No Currently Unemployed: No Education: Associate Degree Living arrangements: with family Additional living arrangements comments: and son Occupation/Education: occupation 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 Gender identity (if verbalized by the patient): Male Sexual Orientation (if Verbalized by the Nelly
--- NOTE | 2024-05-01 11:37 | PM.HPGS ---
History of Present Illness History of Present Illness Consent: Risks, benefits, and alternatives have been discussed and questions answered. Patient agrees to proceed with procedure. Chief complaint: GERD, RUQ Pain Narrative: Tray Crisostomo is a 58 year old male with gerd for years but lately more breakthrough, had egd but years ago. Review of Systems Review of Systems: All systems reviewed & are unremarkable except as noted in HPI and below PMFSH Past Medical History Medical History Adult BMI 33.0-33.9 kg/sq m Allergies Anxiety Asthma Asymptomatic proteinuria BMI 32.0-32.9,adult BMI 34.0-34.9,adult BMI 35.0-35.9,adult COVID COVID-19 Excessive cerumen in both ear canals Excessive cerumen in left ear canal History of kidney stones Hx of adenomatous colonic polyps Left ureteral stone Lesion of liver greater than 1 cm in diameter MDD (major depressive disorder), recurrent episode, mild NAFLD (nonalcoholic fatty liver disease) LAMONT (obstructive sleep apnea) CPAP Otitis media, right Pulmonary embolus Screen for colon cancer Surgical History Surgical History H/O colonoscopy History of cholecystectomy History of cochlear implant 2021 History of fusion of cervical spine C3-4 Family History Family History Father Cerebrovascular accident Family history of diabetes mellitus in first degree relative Diabetes mellitus Mother Family history of diabetes mellitus in first degree relative Dementia Family hx of colon cancer Hyperlipidemia Depression Sibling Hyperlipidemia Multiple sclerosis Diabetes mellitus Rheumatoid arthritis Skin cancer Lupus Other Diabetes mellitus Cancer Depression Heart disease Grandparent Cancer Cerebrovascular accident Other Carcinoma of colon Family history of alcoholism Family history of coronary artery disease Family history of heart disease in male family member before age 55 Hypertension Social History Social History Smoking status: Never smoker Second hand tobacco smoke exposure: No Alcohol intake: never Substance use: never Substance use type: does not use Do You Feel Safe in your Home?: Yes Lack of Transportation: No Lack of Food: Never True Current Housing: I Have Housing Concerned About Future Housing: No Difficulty Paying Gas/Electric Bills: No Difficulty Paying for Meds: No Currently Unemployed: No Education: Associate Degree Living arrangements: with family Additional living arrangements comments: and son Occupation/Education: occupation 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 Gender identity (if verbalized by the patient): Male Sexual Orientation (if Verbalized by the Patient): Straight or Heterosexual Spiritual care concerns: No Agree to blood products: Yes Meds Home Medications and Allergies Home Medications Medication Instructions Recorded Confirmed Type albuterol sulfate 90 mcg/actuation 1 puff inhalation Q4H PRN 12/26/23 05/01/24 Rx aerosol inhaler (ProAir HFA) shortness of breath or wheezing #8.5 grams apixaban 5 mg tablet (Eliquis) 5 mg PO BID #180 tabs 04/10/24 05/01/24 Rx bupropion HCl 150 mg 24 hr tablet, 150 mg PO QAM #90 tabs 04/10/24 05/01/24 Rx extended release (Wellbutrin XL) Allergies Allergy/AdvReac Type Severity Reaction Status Date / Time morphine Allergy Unknown rash Verified 05/01/24 10:52 Penicillins Allergy Unknown Rash Verified 05/01/24 10:52 Sulfa (Sulfonamide Allergy Unknown Rash Verified 05/01/24 10:52 Antibiotics) Vital Signs Vital Signs - 24 hr 05/01/24 10:53 Temperature 97 F L Pulse Rate 80 Respiratory Rate 18 Blood Pressure 131/89 Pulse Oximetry
[2024-05-01] MEDS: BENZOCAINE (*SP) 60 ML SPRAY CAN (HURRICAINE) 1 SPRAY MUCOUS MEM (11:41)
[2024-05-01 11:47] VITALS: BP 121/79; PULSE 83; RESP 16; O2SAT 98
[2024-05-01 11:57] VITALS: BP 128/74; PULSE 82; RESP 18; O2SAT 97
[2024-05-01 12:07] VITALS: BP 118/72; PULSE 77; RESP 18; O2SAT 99
== END 2024-05-01 12:22 | disposition home or self-care (01) ==
PROVIDERS: PCP Family Medicine; Visit Provider Internal Medicine Gastroenterology
PROC: 0DJ08ZZ Inspection of Upper Intestinal Tract, Via Natural or Artificial Opening Endoscopic (ICD-10-PCS; CPT 43235; principal; 2024-05-01 12:30)
DX: K21.00 Gastro-esophageal reflux disease with esophagitis, without bleeding (principal); F41.9 Anxiety disorder, unspecified; J45.909 Unspecified asthma, uncomplicated; F33.9 Major depressive disorder, recurrent, unspecified; G47.33 Obstructive sleep apnea (adult) (pediatric); E66.9 Obesity, unspecified; Z68.32 Body mass index [BMI] 32.0-32.9, adult; Z79.51 Long term (current) use of inhaled steroids; Z79.01 Long term (current) use of anticoagulants; Z99.89 Dependence on other enabling machines and devices; Z98.890 Other specified postprocedural states; Z98.1 Arthrodesis status; Z90.49 Acquired absence of other specified parts of digestive tract; Z86.711 Personal history of pulmonary embolism; Z87.442 Personal history of urinary calculi; Z86.010 Personal history of colon polyps; Z80.0 Family history of malignant neoplasm of digestive organs; Z84.0 Family history of diseases of the skin and subcutaneous tissue; Z82.49 Family history of ischemic heart disease and other diseases of the circulatory system
CPT/HCPCS: 43239; 88305; J2704; J7120

== ENCOUNTER 2024-10-14 06:36 | Outpatient (CLI) | payer OTHER, SELFPAY ==
--- NOTE | ~2024-10-14 | US_ITS ---
Limited Abdominal Sonogram: Real-time sonographic imaging of the right upper quadrant was performed. Clinical History: Liver lesion Findings: The liver appears normal with no evidence of solid mass lesion or bile duct dilatation. 2. 3 cm left hepatic lobe cyst present with single thin septation. Main portal vein demonstrates normal direction of flow. The gallbladder is absent, compatible prior cholecystectomy. The common bile duct measures 5 mm. The visualized pancreas, aorta, and IVC are unremarkable. Impression: 2.3 cm hepatic cyst with thin septation. Status post cholecystectomy. Reviewed, dictated and finalized at [facility]. L ASSEMBLER Impression: 2.3 cm hepatic cyst with thin septation. Status post cholecystectomy.
--- OUTSIDE RECORDS SUMMARY | 2024-10-14 06:39 | XMS_ITS | Patient Health Summary ---
Author Organization [facility] Address [address] [place] [address] Care Team Providers Care Land Examiner Name Role Phone Unknown, Provider Primary Care Provider Unavaila ble Note from [facility],non-owned Affiliates and Associated Physician Practices is amultiple site organization consisting of ambulatory clinics and hospital sitesin [place], [place], [place] and [place]. This disclosure is being madepursuant to the Care Everywhere program and may not contain all information available regarding this patient. Last updated 18.[facility] Social History Tobacco Use Types Packs/Day Years Used Date Smoking Tobacco: Never Assessed Sex and Gender Information Value Date Recorded Sex Assigned at Not on file Gender Identity Not on file Sexual Orientation Not on file Procedures * CA LIVER ELASTOGRAPHY(Performed 07/15/2024) Performed for Fatty liver Results * CA LIVER ELASTOGRAPHY (07/15/2024 3:25 PM ENGINEERING TECHNICAL ANALYST) Narrative Taras Schwartz MD - 07/15/2024 3:25 PM ENGINEERING TECHNICAL ANALYST Taras Schwartz MD ? 07/16/2024 ??1:44 PM Diagnosis: Fatty liver Patient confirms NPO 3 hours prior to procedure. Procedure explained. Date of Exam: 07/15/2024 Liver Stiffness: (LSM, kPa) median: ?? 12.7 IQR/Median% (ideally < 30%): ? 21% CAP (controlled attenuation parameter): ?308 Technical Difficulty: Many invalid attempts Ordering Provider: Doreen De La Cruz APRN Fibroscan interpretation: I have personally reviewed the Fibroscan report and associated tracings. The calculated Liver Stiffness Measurement (LSM, kPa) indicates that: The probability of advanced liver fibrosis is: moderate. The loss of ultrasound signal, (controlled attenuation parameter, CAP [dB/m]), indicates that the probability of hepatic steatosis is: high. Taras Cesar MD The following criteria are used to indicate the probability of advanced (stage 3-4) fibrosis: < 7.0 kPa: low 7.0-8.9 kPa: low to moderate 9.0-14.9 kPa: moderate 15-20 kPa: high > 20 kPa: very high Liver stiffness > 20 kPa is also associated with a high probability of complications of portal hypertension including varices and ascites. Liver stiffness > 50 kPa is associated with a high risk of variceal bleeding. These interpretations are based on the following published data: Farhat PJ, Fiorella M, Mone M, et al. Accuracy of FibroScan controlled attenuation parameter and liver stiffness measurement in assessing steatosis and fibrosis in patients with nonalcoholic fatty liver disease. Gastroenterology 2019;156:6279-0164. Dilcia FONSECA, Agnes R, Van Natta ML, et al. Vibration-controlled transient elastography to assess fibrosis and steatosis in patients with nonalcoholic fatty liver disease. Clin Gastroenterol Hepatol 2019;17:156-163. Note that scores have been developed that incorporate the Fibroscan liver stiffness measurement from large cohorts of patients with liver biopsies to further refine the ability of Fibroscan to identify patients ??with MASH and advanced fibrosis. These include the FAST (Fibroscan-AST) score (Mason, 202) and the Agile3+ and Agile4 scores (Shawn, 202). Mason TA, Van Natta ML, Georgia M, Tonio A, et al. Validation of the accuracy of the FAST score for detecting patients with at-risk nonalcoholic steatohepatitis (FREEMAN) in a [place] cohort and comparison to other non-invasive algorithms. PLoS ONE (2021) 17: [id number]. Shawn SLATER, Dakota Enciso, Della DUARTE, et al. Enhanced diagnosis of advanced fibrosis and cirrhosis in individuals with NAFLD using FibroScan-based Agile scores. J Hepatol (2022) 78: 247-259. Fibroscan LSM can also be used with laboratory parameters without formulas to assess prognosis. According to the Baveno-VII criteria (Ford, 2022), Fibroscan LSM <=15 kPa plus a platelet count of >=[id number]/L rules out clinically significant portal hypertension (sensitivity and negative predictive value >90%) in patients with compensated advanced chronic liver disease. Ford R, Lavon J, Ponce G, José Miguel T, Caio Amezquita on behalf of the [facility] Faculty. Baveno VII--Renewing consensus in portal hypertension. J Hepatol (2021) 76: 959-974 Assessing the likelihood of advanced fibrosis in patients with intermediate liver stiffness measurement (LSM) by Fibroscan (e.g., 8-15 kPa) can be improved by also calculating the FIB-4 score (Shavonuke et al. Hepatology Communications 2019;3:7741-1681) or NAFLD Fibrosis score (Hutchinson et al. Clinical Gastroenterology and Hepatology 2019;17:6505-4992 using ??routine clinical data. Note: 1. Fibroscan cannot reliably identify earlier stages of fibrosis (ie distinguish F0 from F1 and F2) and thus a histologic stage cannot be predicted from the Fibroscan reading. 2. Liver stiffness can be increased by factors other than fibrosis including passive congestion, infiltrative processes, active alcoholism, recent moderate alcohol consumption in the 2 weeks before the exam, ??biliary obstruction and marked inflammation. The interpretation of the Fibroscan result provided above may not have taken such clinical factors into account. Disease etiology also influences Fibroscan cutoff values for fibrosis stages and the following cutoffs have been proposed (Enma et al, Clin Gastro Hepatol 2015; 13:27-36): Cutoffs for Stage 3 and Stage 4 fibrosis respectively: Hepatitis B: >9 and >11.7 kPa Hepatitis C: >9.5 and >12.5 kPa HCV-HIV: >11 and >14 kPa Cholestatic liver diseases: >10 and >17.9 kPa MASLD/MASH: >10 and >14 kPa CAP estimates of steatosis: normal <200 dB/m mild 200 to 250 dB/m moderate 250-290 dB/m substantial > 290 dB/m (Note that Fibroscan is not a quantitative measure of liver fat.) These criteria are estimates and may change as additional supporting data becomes available. (This additional interpretive data was last updated 01/12/23.) [email or web address] Taras Schwartz MD PROCEDURE/ MINOR SURGICAL ORDERABLES Care Teams Land Examiner Relationship Specialty Start Date End Date Unknown, Provider PCP - General 07/13/24
--- OUTSIDE RECORDS SUMMARY | 2024-10-14 06:39 | XMS_ITS ---
Author Organization Unknown Address [address] [place] [phone] Phone Care Team Providers Care Two Way Radio Installer Name Role Phone ENGLE MOHJO ANN Attending Unavailable NO PCP Primary Unavailable Immunization Immunization Date Status Additional Notes Code Code System influenza, split (incl. purified surface antigen) 06/08/2013 Completed 15 CV X Influenza, split virus, quadrivalent, PF 07/07/2020 Completed 150 CVX Influenza, split virus, quadrivalent, PF 08/10/2022 Completed 150 CVX Influenza, recombinant, quadrivalent, PF 07/26/2021 Completed 185 CVX Results URINALYSIS w/Microscopy/C&S if indicated - Collect Date/Time: 02/19/2024 17:48 [facility] ID: [id number] [place] [address], [id number] LOINC: 99089-3 Test Value Unit Reference Range Code Code System Flag UR SOURCE VOIDED 68245-2 LOINC COLOR YELLOW YELLOW 5778-6 LOINC CLARITY CLEAR CLEAR 11933-9 LOINC SPEC GRAVITY >=1.030 1.000-1.030 5811-5 LOINC A PH 5.5 5.0 - 6.5 5803-2 LOINC LEUK EST NEGATIVE NEGATIVE 5799-2 LOINC NITRATE NEGATIVE NEGATIVE PROTEIN NEGATIVE NEGATIVE 5804-0 LOINC GLUCOSE NEGATIVE NEGATIVE 57337-9 LOINC KETONES NEGATIVE NEGATIVE 46106-7 LOINC UROBILINOGEN 1.0 NEGATIVE 5818-0 LOINC BILIRUBIN NEGATIVE NEGATIVE 14486-5 LOINC BLOOD TRACE-ZAHEER NEGATIVE 03931-1 LOINC WBC 2-5 0 - 2 83431-3 LOINC RBC 2-5 0 - 2 81356-7 LOINC EPITHELIAL OCCASIONA RARE-FEW 28669-3 LOINC BACTERIA FEW NONE SEEN 18276-3 LOINC MUCUS FEW NONE SEEN 8247-9 LOINC YEAST NOT PRESENT NOT PRESENT 45121-2 LOINC CASTS NONE SEEN 13146-1 LOINC CRYSTALS NONE SEEN 75924-3 LOINC CULTURE? NO 8251-1 LOINC DIAGNOSIS N/A TROPONIN LEVEL - Collect Artur e/Time: 02/19/2024 17:38 [facility] ID: [id number] [address] [place], [place], [phone] LOINC: 13175-4 Test Value Unit Reference Range Code Code System Flag TROPONIN < 0.012 ng/mL L=0.000 H=0.033 32101-3 LOINC CBC W/ DIFF - Collect Date/T jose manuel: 02/19/2024 17:38 [facility] ID: [id number] [address] [place], [place], [id number] LOINC: 55647-7 Test Value Unit Reference Range Code Code System Flag WBC 7.0 10^3uL L=4.8 H=10.8 RBC 4.81 10^6uL L=4.60 H=6.20 HEMOGLOBIN 14.4 g/dL L=14.0 H=18.0 718-7 LOINC HEMATOCRIT 42.3 VOL% L=42.0 H=52.0 4544-3 LOINC MCV 87.9 fL L=80.0 H=94.0 MCH 29.9 pg L=27.0 H=32.0 MCHC 34.0 g/dL L=32.0 H=36.0 PLATELETS 234 10^3uL L=100 H=400 33478-1 LOINC RDW 12.5 % L=11.7 H=15.5 %GRAN 65.8 % L=40.0 H=70.0 49287-5 LOINC %LYMPH 23.2 % L=20.0 H=45.0 736-9 LOINC %MONO 7.4 % L=2.0 H=10.0 45562-9 LOINC %EOS 2.7 % L=0.0 H=6.0 713-8 LOINC %BASO 0.6 % L=0.0 H=3.0 706-2 LOINC #NEUT 4.6 10^3uL L=1.9 H=7.6 03434-7 LOINC #LYMPH 1.6 10^3uL L=0.9 H=4.9 36226-5 LOINC #MONO 0.5 10^3uL L=0.1 H=0.9 97696-8 LOINC #EOS 0.2 10^3uL L=0.0 H=0.6 712-0 LOINC #BASO 0.04 10^3uL L=0.00 H=0.10 10222-6 LOINC #IM GRANS 0.0 10^3uL L=0.0 H=7.0 39101-7 LOINC %IM GRANS 0.3 % L=0.0 H=5.0 91783-3 LOINC %NRB 0.0 L=0.0 H=0.2 63788-0 LOINC #NRB 0.000 L=0.000 H=0.012 81478-4 LOINC MANUAL DIFF NOT INDICATED RBC MORPH NOT INDICATED COMPREHENSIVE METABOLIC PANE L - Collect Date/Time: 02/19/2024 17:38 [facility] ID: [id number] [address] [place], [place], [id number] LOINC: 66616-4 Test Value Unit Reference Range Code Code System Flag FASTING UNKNOWN BUN 18 mg/dL L=7 H=20 3094-0 LOINC CREATININE 1.00 mg/dL L=0.66 H=1.25 2160-0 LOINC GLUCOSE 153 mg/dL L=74 H=106 2345-7 LOINC H SODIUM 141 mmol/L L=132 H=144 2951-2 LOINC POTASSIUM 3.8 mmol/L L=3.5 H=5.1 2823-3 LOINC CHLORIDE 106 mmol/L L=98 H=107 2075-0 LOINC CO2 30.0 mmol/L L=22.0 H=30.0 2028-9 LOINC ANION GAP 9 L=10 H=20 73625-4 LOINC L OSMOLALITY 297 mOs/kG L=280 H=296 07126-2 LOINC H BUN/CREAT 18.0 3097-3 LOINC CALCIUM 9.0 mg/dL L=8.3 H=10.5 41788-5 LOINC AST 34 U/L L=15 H=46 1920-8 LOINC ALT 41 U/L L=9 H=72 1742-6 LOINC ALKALINE PHOS 85 U/L L=38 H=126 6768-6 LOINC TOTAL BILI 0.5 mg/dL L=0.2 H=1.3 1975-2 LOINC ALBUMIN 4.1 G/dL L=3.5 H=5.0 1751-7 LOINC TOTAL PROTEIN 7.3 g/L L=6.3 H=8.2 2885-2 LOINC A/G RATIO 1.3 77191-6 LOINC AGE 58 03891-6 LOINC eGFR NON-AFR 82 ml/min eGFR AFR AMER 99 ml/min LIPASE - Collect Date/Time: 02/19/2024 17:38 [facility] ID: [id number] [address] [place], [place], [id number] LOINC: 3040-3 Test Value Unit Reference Range Code Code System Flag LIPASE 48 U/L L=23 H=300 3040-[address] ABD/PEL W/ CONTRAST - Com pleted: 02/19/2024 18:13 LOINC: 77184-1 EXAM DESCRIPTION: CT ABD/PEL W/ CONTRAST REASON FOR STUDY: Pain in low mid chest for 2-3 days. Patient states that when he gets PE's, that is where the pain typically starts. History of multiple PE's in the last few years. Pain in lower abdomen as well. No known trauma. Duration: 2-3 days TECHNIQUE: CT scan of the abdomen and pelvis performed with intravenous and without oral contrast using helical scanning technique with dynamic intravenous contrast injection. Reconstructed coronal and sagittal MPR images reviewed. All images stored on PACS. Automated exposure control was used as a dose optimization technique for this examination. CONTRAST TYPE/DOSE: 100 cc of Isovue 370 injected via Right AC COMPARISON: None FINDINGS: LOWER CHEST: No significant pulmonary abnormalities. No effusion. LIVER: Several small cysts of the liver suspected. No solid or enhancing lesion is suspected. GALLBLADDER: Removed BILE DUCTS: No intrahepatic or extrahepatic ductal dilatation. SPLEEN: Normal size. No focal lesions. PANCREAS: No identified cystic or solid masses. No significant calcifications. No adjacent inflammation or peripancreatic fluid collections. Pancreatic duct not dilated. ADRENALS: Normal. KIDNEYS/URINARY TRACT: No identified significant cystic or solid masses. Small nonobstructing stone is seen in the lower right kidney. No hydronephrosis or hydroureter. Symmetric enhancement. Urinary bladder is unremarkable. GI: No dilated bowel loops. No obvious wall thickening. Normal appendix. No significant diverticular disease. PERITONEUM: No ascites or free air. RETROPERITONEUM: No mass or adenopathy. REPRODUCTIVE: No significant abnormality. VASCULATURE: No abdominal aortic aneurysm. MUSCULOSKELETAL: No significant abnormality. OTHER: No other abnormality. IMPRESSION: No acute abnormality is seen in the abdomen and pelvis to explain the patient's symptoms. THIS IS AN ELECTRONICALLY VERIFIED FINAL REPORT 02/19/2024 6:30 PM - Electronically signed by Billy Alexandre M.D. KH: NEW Report ID: [id number] Reading Location: [place] [address] CT CHEST PE ANGIO W/ CONTRAS T - Completed: 02/19/2024 18:13 LOINC: 94534-5 EXAM DESCRIPTION: CT CHEST PE ANGIO W/ CONTRAST REASON FOR STUDY: Pain in low mid chest for 2-3 days. Patient states that when he gets PE's, that is where the pain typically starts. History of multiple PE's in the last few years. Pain in lower abdomen as well. No known trauma. Duration: 2-3 days TECHNIQUE: CT angiogram of the chest performed with intravenous contrast using helical scanning technique with dynamic intravenous contrast injection. Reconstructed coronal and sagittal MPR images reviewed. All images stored on PACS. 3D MIP images rendered on scanning unit and reviewed at time of interpretation. Automated exposure control was used as a dose optimization technique for this examination. CONTRAST TYPE/DOSE: 100 cc of Isovue 370 injected via Right AC COMPARISON: None REFERENCE: Per ACR white paper recommendations, unless otherwise specified no follow-up imaging is recommended for incidental renal and adrenal lesions per consensus recommendations based on imaging criteria. Further lab evaluation could be pursued based on clinical findings. FINDINGS: VASCULATURE: No identified pulmonary emboli. LUNGS: No nodules or masses. No pneumonia. Minor scarring is seen in the bases posteriorly PLEURA: No effusion. No pneumothorax. MEDIASTINUM/BOB: No identified masses or abnormal nodes. HEART: Heart size is normal with no pericardial effusion. AXILLA: No adenopathy. CHEST WALL: No masses. No subcutaneous air. HARDWARE/LINES/TUBES: None. UPPER ABDOMEN: No significant abnormality. MUSCULOSKELETAL: No significant abnormality. OTHER: No significant abnormality. IMPRESSION: No evidence of pulmonary embolism. No acute abnormality is seen. THIS IS AN ELECTRONICALLY VERIFIED FINAL REPORT 02/19/2024 6:32 PM - Electronically signed by Billy Alexandre M.D. KH: NEW Report ID: [id number] Reading Location: [place] [address] Social History Type Status Start Date End Date Code Code Syst em Smoking History Never smoker (Never Smoked) [id number] SNOMED CT Sex Male Hospital Discharge Instructions Should you have any questions prior to discharge, please contact a member of your healthcare team. If you have left the hospital and have any questions, please contact your primary care physician. Reason For Referral No Data Found Plan of Treatment No Data Found Encounters Encounter Diagnosis Start Date Code Code Sys tem Epigastric pain 02/19/2024 SNOMED-CT Personal Care Team Section Performer Name Performer Role Active Date Inactive Da te Imaging Narrative Notes
--- OUTSIDE RECORDS SUMMARY | 2024-10-14 06:39 | XMS_ITS | Clinical Summary ---
Author Organization [facility] Address [address] [address] Care Team Providers Care Assistant Field Hockey Coach Name Role Phone Unknown, Provider Primary Care Provider Unavaila ble Source Comments [facility],non-owned Affiliates and Associated Physician Practices is amultiple site organization consisting of ambulatory clinics and hospital sitesin [place], [place], [place] and [place]. This disclosure is being madepursuant to the Care Everywhere program and may not contain all information available regarding this patient. Last updated 18.[facility] Encounters Date Type Department Care Team Description 07/15/2024 3:30 PM BARGE MASTER Office Visit [facility] - GI [address] [place] [phone] Unknown, Provider Fatty liver (Primary Dx) 07/15/2024 Travel from Last 3 Months Social History Tobacco Use Types Packs/Day Years Used Date Smoking Tobacco: Never Assessed Sex and Gender Information Value Date Recorded Sex Assigned at Not on file Gender Identity Not on file Sexual Orientation Not on file Plan of Treatment Health Maintenance Due Date Last Done Comments COLOGUARD (AGES 45-75) - COLON CA SCREENING 1966 COLON MONITORING 1966 COLONOSCOPY - COLON CA SCREENING 1966 CT COLONOGRAPHY - COLON CA SCREENING 1966 Colorectal Cancer Screening 1966 FIT - COLON CA SCREENING 1966 FLEX SIG - COLON CA SCREENING 1966 LIPID TESTING 1966 HIV SCREENING 1981 HEPATITIS C SCREENING 08/09/1984 DTAP/TDAP/TD VACCINES (1 - Tdap) 1985 HEPATITIS B VACCINE (1 of 3 - 19+ 3-dose series) 1985 PNEUMOCOCCAL VACCINE 50+ (1 of 1 - PCV) 2016 ZOSTER VACCINE (1 of 2) 2016 COVID-19 VACCINE (1 - 2023-25 season) 2024 INFLUENZA VACCINE (#1) 2024 2, 07/26/2021, 07/07/2020, Additional history exists DEPRESSION SCREENING 09/09/2024 HIB VACCINE Aged Out No longer eligi ble based on patient's age to complete this topic HPV VACCINE Aged Out No longer eligi ble based on patient's age to complete this topic MENINGOCOCCAL (Group B) VACCINE Aged Out No longer eligible based on patient's age to complete this topic MENINGOCOCCAL VACCINE Aged Out No shahriar abril eligible based on patient's age to complete this topic PNEUMOCOCCAL VACCINE Aged Out No long er eligible based on patient's age to complete this topic Procedures Procedure Name Priority Date/Time Associated Diagnosis Comments ME LIVER ELASTOGRAPHY Routine 07/15/2024 3:25 PM BARGE MASTER Fatty liver from Last 3 Months Results * ME LIVER ELASTOGRAPHY (07/15/2024 3:25 PM BARGE MASTER) Narrative Taras Schwartz MD - 07/15/2024 3:25 PM BARGE MASTER Taras Schwartz MD ? 07/16/2024 ??1:44 PM [...] patients with nonalcoholic fatty liver disease. Gastroenterology 2019;156:3773-8390. Dilcia FONSECA, Agnes R, Van Natmaria e ML, et al. Vibration-controlled transient elastography to [...] These include the FAST (Fibroscan-AST) score (Mason, 2021) and the Agile3+ and Agile4 scores (Shawn, 2022). Mason TA, Van Natta ML, Georgia M, Tonio A, et al. Validation of the accuracy of the FAST score for detecting patients with at-risk nonalcoholic steatohepatitis (FREEMAN) in a [place] cohort and comparison to other non-invasive algorithms. PLoS ONE (2021) 17: g4459313. Shawn SLATER, Dakota J, Della ZM, et al. Enhanced diagnosis of advanced fibrosis and cirrhosis in individuals with NAFLD using FibroScan-based Agile scores. J Hepatol (2022) 78: 247-259. Fibroscan LSM can also be used with laboratory parameters without formulas to assess prognosis. According to the Baveno-VII criteria (Ford, 202), Fibroscan LSM <=15 kPa plus a platelet count of >=683n079/L rules out clinically significant portal hypertension (sensitivity and negative predictive value >90%) in patients with compensated advanced chronic liver disease. Sanabria, Lavon Enciso, Ponce G, José Miguel T, Caio Amezquita on behalf of the [facility] VII Faculty. [facility]--Renewing consensus in portal hypertension. J Hepatol (2021) 76: 959-974 Assessing the likelihood of advanced fibrosis in patients with intermediate liver stiffness measurement (LSM) by Fibroscan (e.g., 8-15 kPa) can be improved by also calculating the FIB-4 score (Holly et al. Hepatology Communications 2019;3:1607-3596) or NAFLD Fibrosis score (Hutchinson et al. Clinical Gastroenterology and Hepatology 2019;17:8032-1836 using ??routine clinical data. Note: 1. Fibroscan [...] additional interpretive data was last updated 01/12/23.) [email or web address] Taras Schwartz MD PROCEDURE/ MINOR SURGICAL ORDERABLES from Last 3 Months Care Teams Assistant Field Hockey Coach Relationship Specialty Start Date End Date Unknown, Provider PCP - General 07/13/24
--- OUTSIDE RECORDS SUMMARY | 2024-10-14 06:39 | XMS_ITS | Referral Summary ---
Author Organization [facility] Address [address] [place] [address] Care Team Providers Care Boiler House Supervisor Name Role Phone Unknown, Provider Primary Care Provider Unavaila ble Source Comments [facility],non-owned Affiliates and Associated Physician Practices is amultiple site organization consisting of ambulatory clinics and hospital sitesin [place], [place], [place] and [place]. This disclosure is being madepursuant to the Care Everywhere program and may not contain all information available regarding this patient. Last updated 18.[facility] Encounters Date Type Department Care Team Description 07/15/2024 Travel 07/15/2024 3:30 PM OPERATIONS RECRUITER Office Visit [facility] - [address] [place] [phone] Unknown, Provider Fatty liver (Primary Dx) from Last 3 Months Social History Tobacco Use Types Packs/Day Years Used Date Smoking Tobacco: Never Assessed Sex and Gender Information Value Date Recorded Sex Assigned at Not on file Gender Identity Not on file Sexual Orientation Not on file Plan of Treatment Not on file Procedures Procedure Name Priority Date/Time Associated Diagnosis Comments CT LIVER ELASTOGRAPHY Routine 07/15/2024 3:25 PM OPERATIONS RECRUITER Fatty liver from Last 3 Months Results * CT LIVER ELASTOGRAPHY (07/15/2024 3:25 PM OPERATIONS RECRUITER) Narrative Taras Schwartz MD - 07/15/2024 3:25 PM OPERATIONS RECRUITER Taras Schwartz MD ? 07/16/2024 ??1:44 PM [...] patients with nonalcoholic fatty liver disease. Gastroenterology 2019;156:1048-0905. Dilcia MS, Agnes R, Van Natmaria e SMALLS, et al. Vibration-controlled transient elastography to assess [...] 2022). Mason TA, Van Natta ML, Georgia Campa, Tonio A, et al. Validation of the accuracy of the FAST score for detecting patients with at-risk nonalcoholic steatohepatitis (FREEMAN) in a [place] cohort and comparison to other non-invasive algorithms. PLoS ONE (2021) 17: f9578340. Shawn AJ, Dakota J, Della ZM, et al. Enhanced diagnosis of advanced fibrosis and cirrhosis in individuals with NAFLD using FibroScan-based Agile scores. J Hepatol (2022) 78: 247-259. Fibroscan LSM can also be used with laboratory parameters without formulas to assess prognosis. According to the Baveno-VII criteria (Ford, 2022), Fibroscan LSM <=15 kPa plus a platelet count of >=671l353/L rules out clinically significant portal hypertension (sensitivity and negative predictive value >90%) in patients with compensated advanced chronic liver disease. Ford R, Lavon J, Ponce G, José Miguel T, Caio Amezquita on behalf of the Baveno VII Faculty. Baveno VII--Renewing consensus in portal hypertension. J Hepatol (2021) 76: 959-974 Assessing the likelihood of advanced fibrosis in patients with intermediate liver stiffness measurement (LSM) by Fibroscan (e.g., 8-15 kPa) can be improved by also calculating the FIB-4 score (Raghue et al. Hepatology Communications 2019;3:9954-4308) or NAFLD Fibrosis score (Hutchinson et al. Clinical Gastroenterology and Hepatology 2019;17:5250-2268 using ??routine clinical data. Note: 1. Fibroscan [...] additional interpretive data was last updated 01/12/23.) [email or web address] Taras Schwartz MD PROCEDURE/ MINOR SURGICAL ORDERABLES from Last 3 Months Care Teams Boiler House Supervisor Relationship Specialty Start Date End Date Unknown, Provider PCP - General 07/13/24
--- OUTSIDE RECORDS SUMMARY | 2024-10-14 06:39 | XMS_ITS | Clinical Summary ---
Author Organization [facility] Address [address] [place] [address] Care Team Providers Care Athlete Manager Name Role Phone John Hernandez MD Primary Care Provider [phone] Allergies Active Allergy Reactions Criticality Noted Date Comments Penicillins Unknown 05/19/2021 Sulfa Antibiotics Unknown 05/19/2021 Medications fluticasone 110 MCG/ACT inhaler Inhale 1 puff into the lungs 2 (two) times daily. Active buPROPion 75 MG tablet Take 75 mg by mouth 2 (two) times daily. Active HYDROcodone-magnolia taminophen 5-325 MG tabletIndicatio ns:Acute Pain < 3 Day Supply Take 1 tablet by mouth every 8 (eight) hours as needed for Pain. Indications: Acute Pain < 3 Day Supply 9 tablet 05/19/2021 Active apixaban (ELIQUIS DVT/PE STARTER PACK) 5 MG tablet starter pack Take 2 tablets (10 mg total) by mouth 2 (two) times daily for 7 days, then take 1 tablet (5 mg total) by mouth 2 (two) times daily. 74 tablet 09/04/2022 Active Active Problems Problem Noted Date Diagnosed Date Vertigo 02/20/2024 Social History Tobacco Use Types Packs/Day Years Used Date Smoking Tobacco: Never Smokeless Tobacco: Never Tobacco Cessation:Counseling Given: Not Answered Alcohol Use Standard Drinks/Week Comments Never 0 (1 standard drink = 0.6 oz pur e alcohol) Sex and Gender Information Value Date Recorded Sex Assigned at Not on file Legal Sex Male 4:50 PM CDT Gender Identity Not on file Sexual Orientation Not on file Last Filed Vital Signs Vital Sign Reading Time Taken Comments Blood Pressure 131/92 09/04/2022 4:30 PM ROCK LATHER Pulse 78 09/04/2022 4:30 PM ROCK LATHER Temperature 35.9 ??C (96.7 ??F) 09/04/2022 2:07 PM CS T Respiratory Rate 20 09/04/2022 4:30 PM ROCK LATHER Oxygen Saturation 99% 09/04/2022 4:30 PM ROCK LATHER Inhaled Oxygen Concentration - - Weight 113.4 kg (250 lb) 09/04/2022 2:07 PM ROCK LATHER Height 185.4 cm (6' 1 ) 09/04/2022 2:07 PM ROCK LATHER Body Mass Index 32.98 09/04/2022 2:07 PM ROCK LATHER Plan of Treatment Health Maintenance Due Date Last Done Comments Colorectal Cancer Screening Colonoscopy (10 Years) 1966 Annual Physical 1969 Hepatitis C 1984 DTaP, Tdap and Td Vaccines ( 1 - Tdap) 1985 Hepatitis B Vaccines (1 of 3 - 19+ 3-dose series) 1985 Zoster Vaccines (1 of 2) 2016 COVID-19 Vaccine (1 - 2023-2 5 season) 2024 Influenza Adult (#1) 2024 Meningococcal B Vaccine Aged Out No l onger eligible based on patient's age to complete this topic Meningococcal Vaccine Aged Out No shahriar abril eligible based on patient's age to complete this topic Pneumococcal Vaccine: Pediat rics (0 to 5 Years) and At-Risk Patients (6 to 64 Years) Aged Out No longer eligible b ased on patient's age to complete this topic RSV Immunizations Under 20 Months Aged Out No longer eligible based on patient's age to complete this topic Insurance [facility] Care Teams Athlete Manager Relationship Specialty Start Date End Date John Hernandez MD [address] [place] [address] PCP - General FAMILY PRACTICE 05/19/21
== END 2024-10-14 06:37 | disposition home or self-care (01) ==
PROVIDERS: PCP Family Medicine; Visit Provider Nurse Practitioner
DX: K76.9 Liver disease, unspecified (principal); K76.89 Other specified diseases of liver; Z90.49 Acquired absence of other specified parts of digestive tract
CPT/HCPCS: 76705

== ENCOUNTER 2024-12-04 13:15 | Outpatient (CLI) | payer OTHER, SELFPAY ==
--- OUTSIDE RECORDS SUMMARY | 2024-12-04 13:19 | XMS_ITS | Clinical Summary ---
Author Organization [facility] Address [address] [place] [address] Care Team Providers Care Woods Manager Name Role Phone John Hernandez MD Primary Care Provider [phone] Allergies Active Allergy Reactions Criticality Noted Date [...] Comments Blood Pressure 131/92 09/04/2022 4:30 PM AUTOMOTIVE SALESPERSON Pulse 78 09/04/2022 4:30 PM AUTOMOTIVE SALESPERSON Temperature 35.9 C (96.7 F) 09/04/2022 2:07 PM AUTOMOTIVE SALESPERSON Respiratory Rate 20 09/04/2022 4:30 PM AUTOMOTIVE SALESPERSON Oxygen Saturation 99% 09/04/2022 4:30 PM AUTOMOTIVE SALESPERSON Inhaled Oxygen Concentration - - Weight 113.4 kg (250 lb) 09/04/2022 2:07 PM AUTOMOTIVE SALESPERSON Height 185.4 cm (6' 1 ) 09/04/2022 2:07 PM AUTOMOTIVE SALESPERSON Body Mass Index 32.98 09/04/2022 2:07 PM AUTOMOTIVE SALESPERSON Plan of Treatment Health Maintenance Due Date Last Done Comments Colorectal Cancer Screening Colonoscopy (10 Years) 1966 Annual Physical 1969 Hepatitis C 1984 DTaP, Tdap and Td Vaccines ( 1 - Tdap) 1985 Hepatitis B Vaccines (1 of 3 - 19+ 3-dose series) 1985 Zoster Vaccines (1 of 2) 2016 COVID-19 Vaccine ( - 2023-2 5 season) 2024 Influenza Adult [...] patient's age to complete this topic [place] [address] Care Teams Woods Manager Relationship Specialty Start Date End Date John Hernandez MD [address] [address] PCP - General FAMILY PRACTICE 05/19/21
--- OUTSIDE RECORDS SUMMARY | 2024-12-04 13:20 | XMS_ITS ---
Author Organization Unknown Address [address] [place] [phone] Phone Care Team Providers Care Guide Rail Cleaner Name Role Phone ENGLE MOHJO ANN Attending [...] if indicated - Collect Date/Time: 02/19/2024 17:48 [facility] ID: [id number] [address] [place] [address], [id number] LOINC: 67198-7 Test Value Unit Reference Range Code Code System Flag UR SOURCE VOIDED 22340-5 LOINC COLOR YELLOW YELLOW 5778-6 LOINC CLARITY CLEAR CLEAR 39179-7 LOINC SPEC GRAVITY >=1.030 1.000-1.030 5811-5 LOINC A PH 5.5 5.0 - 6.5 5803-2 LOINC LEUK EST NEGATIVE NEGATIVE 5799-2 LOINC NITRATE NEGATIVE NEGATIVE PROTEIN NEGATIVE NEGATIVE 5804-0 LOINC GLUCOSE NEGATIVE NEGATIVE 01184-9 LOINC KETONES NEGATIVE NEGATIVE 38735-9 LOINC UROBILINOGEN 1.0 NEGATIVE 5818-0 LOINC BILIRUBIN NEGATIVE NEGATIVE 88825-1 LOINC BLOOD TRACE-ZAHEER NEGATIVE 19908-4 LOINC WBC 2-5 0 - 2 97389-8 LOINC RBC 2-5 0 - 2 79562-8 LOINC EPITHELIAL OCCASIONA RARE-FEW 40507-6 LOINC BACTERIA FEW NONE SEEN 98048-9 LOINC MUCUS FEW NONE SEEN 8247-9 LOINC YEAST NOT PRESENT NOT PRESENT 96596-2 LOINC CASTS NONE SEEN 07594-7 LOINC CRYSTALS NONE SEEN 80881-5 LOINC CULTURE? NO 8251-1 LOINC DIAGNOSIS N/A TROPONIN LEVEL - Collect Artur e/Time: 02/19/2024 17:38 [facility] ID: [id number] [address] [place], [place], [id number] LOINC: 38413-4 Test Value Unit Reference Range Code Code System Flag TROPONIN < 0.012 ng/mL L=0.000 H=0.033 92194-0 LOINC CBC W/ DIFF - Collect Date/T jose manuel: 02/19/2024 17:38 [facility] ID: [id number] [address] [place], [place], [id number] LOINC: 51306-4 Test Value Unit Reference Range Code Code System Flag WBC 7.0 10^3uL L=4.8 H=10.8 RBC 4.81 10^6uL L=4.60 H=6.20 HEMOGLOBIN 14.4 g/dL L=14.0 H=18.0 718-7 LOINC HEMATOCRIT 42.3 VOL% L=42.0 H=52.0 4544-3 LOINC MCV 87.9 fL L=80.0 H=94.0 MCH 29.9 pg L=27.0 H=32.0 MCHC 34.0 g/dL L=32.0 H=36.0 PLATELETS 234 10^3uL L=100 H=400 60792-9 LOINC RDW 12.5 % L=11.7 H=15.5 %GRAN 65.8 % L=40.0 H=70.0 15796-9 LOINC %LYMPH 23.2 % L=20.0 H=45.0 736-9 LOINC %MONO 7.4 % L=2.0 H=10.0 01884-9 LOINC %EOS 2.7 % L=0.0 H=6.0 713-8 LOINC %BASO 0.6 % L=0.0 H=3.0 706-2 LOINC #NEUT 4.6 10^3uL L=1.9 H=7.6 40304-2 LOINC #LYMPH 1.6 10^3uL L=0.9 H=4.9 13480-5 LOINC #MONO 0.5 10^3uL L=0.1 H=0.9 74968-0 LOINC #EOS 0.2 10^3uL L=0.0 H=0.6 712-0 LOINC #BASO 0.04 10^3uL L=0.00 H=0.10 11496-8 LOINC #IM GRANS 0.0 10^3uL L=0.0 H=7.0 97395-9 LOINC %IM GRANS 0.3 % L=0.0 H=5.0 35149-2 LOINC %NRB 0.0 L=0.0 H=0.2 83754-7 LOINC #NRB 0.000 L=0.000 H=0.012 45970-2 LOINC MANUAL DIFF NOT INDICATED RBC MORPH NOT INDICATED COMPREHENSIVE METABOLIC PANE L - Collect Date/Time: 02/19/2024 17:38 [facility] ID: [id number] [address] [place], [place], [id number] LOINC: 66844-6 Test Value Unit Reference Range Code Code [...] 2028-9 LOINC ANION GAP 9 L=10 H=20 68558-5 LOINC L OSMOLALITY 297 mOs/kG L=280 H=296 14562-4 LOINC H BUN/CREAT 18.0 3097-3 LOINC CALCIUM 9.0 mg/dL L=8.3 H=10.5 07091-4 LOINC AST 34 U/L L=15 H=46 1920-8 LOINC ALT 41 U/L L=9 H=72 1742-6 LOINC ALKALINE PHOS 85 U/L L=38 H=126 6768-6 LOINC TOTAL BILI 0.5 mg/dL L=0.2 H=1.3 1975-2 LOINC ALBUMIN 4.1 G/dL L=3.5 H=5.0 1751-7 LOINC TOTAL PROTEIN 7.3 g/L L=6.3 H=8.2 2885-2 LOINC A/G RATIO 1.3 25446-0 LOINC AGE 58 00183-8 LOINC eGFR NON-AFR 82 ml/min eGFR AFR AMER 99 ml/min LIPASE - Collect Date/Time: 02/19/2024 17:38 [facility] ID: [id number] [address] [place], [place], [id number] LOINC: 3040-3 Test Value Unit Reference Range Code Code System Flag LIPASE 48 U/L L=23 H=300 3040-[address] ABD/PEL W/ CONTRAST - Com pleted: 02/19/2024 18:13 LOINC: 16290-8 EXAM DESCRIPTION: CT ABD/PEL W/ CONTRAST REASON [...] Billy Alexandre M.D. KH: NEW Report ID: [id number] Reading Location: [place] [address] CT CHEST PE ANGIO W/ CONTRAS T - Completed: 02/19/2024 18:13 LOINC: 59094-1 EXAM DESCRIPTION: CT CHEST PE ANGIO W/ [...] Billy Alexandre M.D. KH: NEW Report ID: [id number] Reading Location: [place] [address] Social History Type Status Start Date End Date Code Code Syst em Smoking History Never smoker (Never Smoked) [id number] SNOMED CT Sex Male Hospital Discharge Instructions [...]
--- OUTSIDE RECORDS SUMMARY | 2024-12-04 13:20 | XMS_ITS | Clinical Summary ---
Author Organization [facility] Address [address] [facility] [place] [address] Care Team Providers Care Division Plant Engineer Name Role Phone Unknown, Provider Primary Care Provider Unavaila ble Source Comments [facility],non-owned Affiliates and Associated Physician Practices is amultiple site organization consisting of ambulatory clinics and hospital sitesin [place], [place], [place] and [place]. This disclosure is being madepursuant to the Care Everywhere program and may not contain all information available regarding this patient. Last updated 18.[facility] [employer]ane Prep Social History Tobacco Use Types Packs/Day Years [...] complete this topic MENINGOCOCCAL (Group B) VACCINE SHARED DECISION-MAKING Aged Out No longer eligible based on patient's age to complete this topic MENINGOCOCCAL GROUPS A/C/Y/W VACCINE Aged Out No longer eligible based on patient's age to complete this topic PNEUMOCOCCAL VACCINE Aged Out No long er eligible based on patient's age to complete this topic Care Teams Division Plant Engineer Relationship Specialty Start Date End Date Unknown, Provider PCP - General 07/13/24
[2024-12-04 13:53] LABS: Hematocrit 41.9 % (42.0-52.0); Hemoglobin 14.5 g/dL (14.0-18.0); Mean Corpuscular HGB Conc 34.6 g/dl (32-36); Mean Corpuscular Hemoglobin 30.1 pg (26-34); Mean Corpuscular Volume 86.9 fl (80-100); Mean Platelet Volume 9.7 fl (7.4-10.4); Platelet Count Result 251 k/mm3 (150-375); Red Blood Count 4.82 M/mm3 (4.6-6.20); Red Cell Distribution Width 12.3 % (11.5-14.5); White Blood Count 6.7 K/mm3 (4.5-10.0)
[2024-12-04 14:05] LABS: INR 1.1; Prothrombin Time 14.2 Seconds (11.1-14.7)
[2024-12-04 14:13] LABS: Alanine Aminotransferase 34 U/L (6-50); Albumin Level 4.4 g/dL (3.5-5.1); Alkaline Phosphatase 72 U/L (38-126); Anion Gap 12 mmol/L (4-12); Aspartate Amino Transferase 28 U/L (17-59); Bilirubin,Total 0.5 mg/dL (0.2-1.3); Blood Urea Nitrogen 21 mg/dL (9-20); Calcium 9.5 mg/dL (8.4-10.2); Carbon Dioxide 23 mmol/L (22-30); Chloride 104 mmol/L (98-107); Estimated Glomerular Filt Rate > 60; Glucose 89 mg/dL (65-110); Sodium 139 mmol/L (137-145)
== END 2024-12-04 13:16 | disposition home or self-care (01) ==
LOC: ANHLAB 13:16
PROVIDERS: PCP Family Medicine; Visit Provider Nurse Practitioner Family
DX: K76.0 Fatty (change of) liver, not elsewhere classified (principal)
CPT/HCPCS: 36415; 80053; 85027; 85610

== ENCOUNTER 2024-12-23 06:57 | Outpatient (CLI) | payer OTHER, SELFPAY ==
--- NOTE | ~2024-12-23 | CT_ITS ---
Non-contrast CT scan of the Abdomen and Pelvis Clinical indication: Abdominal pain Technique: 2.5 mm axial scans were obtained through the abdomen and pelvis without intravenous or or al contrast. Dose reduction technique was used on this scan by utilizing automated exposure control a nd iterative reconstruction technique. The dose-length product (DLP) was 1185.05 mGy-cm. COMPARISON: 04/13/2023 Findings: Images through the lung bases reveal no abnormalities. Small bilateral nonobstructing renal stones are present, largest measuring 4 mm. No ureteral stone or hydronephrosis on either side. Stable hypodense left hepatic lobe lesion, probably cyst or possibly hemangioma. Cholecystectomy clip s are present. The spleen, pancreas, and adrenals appear normal. There is no aortic aneurysm. There is no evidence of bowel obstruction. Images through the pelvis were performed. There is no evidence of ascites or lymphadenopathy. Urinary bladder unremarkable. Prostate gland mildly enlarged. Impression: Small bilateral nonobstructing renal stones, as above. Enlarged prostate gland. Reviewed, dictated and finalized at [facility]. Impression: Small bilateral nonobstructing renal stones, as above. Enlarged prostate gland.
--- OUTSIDE RECORDS SUMMARY | 2024-12-23 07:00 | XMS_ITS | Clinical Summary ---
Author Organization [facility] Address [address] [facility] [place] [address] Care Team Providers Care Char Filter Tank Tender Name Role Phone Unknown, Provider Primary Care Provider Unavaila ble Source Comments [facility],non-owned Affiliates and Associated Physician Practices is amultiple site organization consisting of ambulatory clinics and hospital sitesin [place], [place]. This disclosure is being madepursuant to the Care Everywhere program and may not contain all information available regarding this patient. Last updated 18.[facility] Aggios Social History Tobacco Use Types Packs/Day Years Used Date Smoking Tobacco: Never Assessed Sex and Gender Information Value Date Recorded Sex Assigned at Not on file Legal Sex Male 1:47 PM CDT Gender Identity Not on file [...] of 2) 2016 COVID-19 VACCINE (1 - 2023- season) 2024 DEPRESSION SCREENING 09/09/2024 INFLUENZA VACCINE (Season Ended) 2025 08/10/2022, 07/26/2021, 07/07/2020, Additional history exists HIB VACCINE Aged Out No longer eligi [...] patient's age to complete this topic Insurance [facility] Care Teams Char Filter Tank Tender Relationship Specialty Start Date End Date Unknown, Provider PCP - General 07/13/24
--- OUTSIDE RECORDS SUMMARY | 2024-12-23 07:00 | XMS_ITS | Clinical Summary ---
Author Organization [facility] Address [address] [place] [address] Care Team Providers Care Asset Manager Name Role Phone John Hernandez MD Primary Care Provider [phone] Allergies Active Allergy Reactions Criticality Noted Date [...] Comments Blood Pressure 131/92 09/04/2022 4:30 PM HOME MORTGAGE DISCLOSURE ACT SPECIALIST Pulse 78 09/04/2022 4:30 PM HOME MORTGAGE DISCLOSURE ACT SPECIALIST Temperature 35.9 C (96.7 F) 09/04/2022 2:07 PM HOME MORTGAGE DISCLOSURE ACT SPECIALIST Respiratory Rate 20 09/04/2022 4:30 PM HOME MORTGAGE DISCLOSURE ACT SPECIALIST Oxygen Saturation 99% 09/04/2022 4:30 PM HOME MORTGAGE DISCLOSURE ACT SPECIALIST Inhaled Oxygen Concentration - - Weight 113.4 kg (250 lb) 09/04/2022 2:07 PM HOME MORTGAGE DISCLOSURE ACT SPECIALIST Height 185.4 cm (6' 1 ) 09/04/2022 2:07 PM HOME MORTGAGE DISCLOSURE ACT SPECIALIST Body Mass Index 32.98 09/04/2022 2:07 PM HOME MORTGAGE DISCLOSURE ACT SPECIALIST Plan of Treatment Health Maintenance Due Date Last Done Comments Colorectal Cancer Screening Colonoscopy (10 Years) 1966 Annual Physical 1969 Hepatitis C 1984 DTaP, Tdap and Td Vaccines ( 1 - Tdap) 1985 Hepatitis B Vaccines (1 of 3 - 19+ 3-dose series) 1985 Zoster Vaccines (1 of 2) 2016 COVID-19 Vaccine (1 - 2023-2 5 season) 2024 Meningococcal B Vaccine Aged Out No l onger eligible based on patient's age to complete this topic Meningococcal Vaccine Aged Out No shahriar abril eligible based on patient's age to complete this topic Pneumococcal Vaccine: Pediat rics (0 to 5 Years) and At-Risk Patients (6 to 49 Years) Aged Out No longer eligible b ased on patient's age to complete this topic RSV Immunizations Under 20 Months Aged Out No longer eligible based on patient's age to complete this topic Insurance [employer] Care Teams Asset Manager Relationship Specialty Start Date End Date John Hernandez MD [address] [place] [address] PCP - General FAMILY PRACTICE 05/19/21
--- OUTSIDE RECORDS SUMMARY | 2024-12-23 07:00 | XMS_ITS | Continuity of Care Document ---
Author Organization [facility] Address [address] [place] [address] Phone Care Team Providers Care Kettle Operator Name Role Phone Unavailable Unavailable Unavailable Advance Directives Directive Yes / No Effective Date File Name No Information Encounters Encounter Description Practice Location Reason(s) For Visit Diagnoses Date Provider Providers Copied on Encounter [facility], [address], [place], [place], [id number] , [place] tel:[phone] [facility] CERVICAL DISC DISPLACMNTLUMBAR DISC DISPLACEMENTTHORAC IC DISC DISPLACMNT 4-200 7 No Information Family History Family Member Type Diagnosis Age At Onset No Information Payers Payer name Insurance type Covered constitution party ID Authoriza tion(s) No Information Social History Type Description Quantity Date Captured Comments Sex Male Smoking Status No Information Chief Complaint And Reason For Visit No Information Reason For Referral Reason For Referral No Information History Of Present Illness Encounter Date Complaint History Of Prese nt Illness No Information Functional Status Date Functional Assessmen t No Information Instructions Date Instruction Additional Infor mation No Information Assessments Type Assessment Date No Information Patient Care Teams Name Effective Dates (start - stop) Status Members No Information
--- OUTSIDE RECORDS SUMMARY | 2024-12-23 07:01 | XMS_ITS ---
Author Organization Unknown Address [address] [place] [phone] Phone Care Team Providers Care News Analyst Name Role Phone ENGLE MOHJO ANN Attending [...] if indicated - Collect Date/Time: 02/19/2024 17:48 [facility] ID: [id number] [address] [place] [address], [id number] LOINC: 64958-7 Test Value Unit Reference Range Code Code System Flag UR SOURCE VOIDED 49883-5 LOINC COLOR YELLOW YELLOW 5778-6 LOINC CLARITY CLEAR CLEAR 58642-9 LOINC SPEC GRAVITY >=1.030 1.000-1.030 5811-5 LOINC A PH 5.5 5.0 - 6.5 5803-2 LOINC LEUK EST NEGATIVE NEGATIVE 5799-2 LOINC NITRATE NEGATIVE NEGATIVE PROTEIN NEGATIVE NEGATIVE 5804-0 LOINC GLUCOSE NEGATIVE NEGATIVE 89181-1 LOINC KETONES NEGATIVE NEGATIVE 61957-7 LOINC UROBILINOGEN 1.0 NEGATIVE 5818-0 LOINC BILIRUBIN NEGATIVE NEGATIVE 65601-2 LOINC BLOOD TRACE-ZAHEER NEGATIVE 71738-8 LOINC WBC 2-5 0 - 2 66486-0 LOINC RBC 2-5 0 - 2 76550-8 LOINC EPITHELIAL OCCASIONA RARE-FEW 12026-4 LOINC BACTERIA FEW NONE SEEN 38639-3 LOINC MUCUS FEW NONE SEEN 8247-9 LOINC YEAST NOT PRESENT NOT PRESENT 99339-5 LOINC CASTS NONE SEEN 77821-1 LOINC CRYSTALS NONE SEEN 88883-0 LOINC CULTURE? NO 8251-1 LOINC DIAGNOSIS N/A TROPONIN LEVEL - Collect Artur e/Time: 02/19/2024 17:38 [facility] ID: [id number] [address] [place], [place], [id number] LOINC: 41250-9 Test Value Unit Reference Range Code Code System Flag TROPONIN < 0.012 ng/mL L=0.000 H=0.033 80158-9 LOINC CBC W/ DIFF - Collect Date/T jose manuel: 02/19/2024 17:38 [facility] ID: [id number] [address] [place], [place], [id number] LOINC: 82635-3 Test Value Unit Reference Range Code Code System Flag WBC 7.0 10^3uL L=4.8 H=10.8 RBC 4.81 10^6uL L=4.60 H=6.20 HEMOGLOBIN 14.4 g/dL L=14.0 H=18.0 718-7 LOINC HEMATOCRIT 42.3 VOL% L=42.0 H=52.0 4544-3 LOINC MCV 87.9 fL L=80.0 H=94.0 MCH 29.9 pg L=27.0 H=32.0 MCHC 34.0 g/dL L=32.0 H=36.0 PLATELETS 234 10^3uL L=100 H=400 38482-6 LOINC RDW 12.5 % L=11.7 H=15.5 %GRAN 65.8 % L=40.0 H=70.0 17839-1 LOINC %LYMPH 23.2 % L=20.0 H=45.0 736-9 LOINC %MONO 7.4 % L=2.0 H=10.0 03707-8 LOINC %EOS 2.7 % L=0.0 H=6.0 713-8 LOINC %BASO 0.6 % L=0.0 H=3.0 706-2 LOINC #NEUT 4.6 10^3uL L=1.9 H=7.6 42776-3 LOINC #LYMPH 1.6 10^3uL L=0.9 H=4.9 98401-4 LOINC #MONO 0.5 10^3uL L=0.1 H=0.9 34539-1 LOINC #EOS 0.2 10^3uL L=0.0 H=0.6 712-0 LOINC #BASO 0.04 10^3uL L=0.00 H=0.10 73798-7 LOINC #IM GRANS 0.0 10^3uL L=0.0 H=7.0 35712-6 LOINC %IM GRANS 0.3 % L=0.0 H=5.0 12881-2 LOINC %NRB 0.0 L=0.0 H=0.2 17669-4 LOINC #NRB 0.000 L=0.000 H=0.012 62749-5 LOINC MANUAL DIFF NOT INDICATED RBC MORPH NOT INDICATED COMPREHENSIVE METABOLIC PANE L - Collect Date/Time: 02/19/2024 17:38 [facility] ID: [id number] [address] [place], [place], [id number] LOINC: 26274-7 Test Value Unit Reference Range Code Code System Flag FASTING UNKNOWN BUN 18 mg/dL L=7 H=20 3094-0 LOINC CREATININE 1.00 mg/dL L=0.66 H=1.25 2160-0 LOINC GLUCOSE 153 mg/dL L=74 H=106 2345-7 LOINC H SODIUM 141 mmol/L L=132 H=144 2951-2 LOINC POTASSIUM 3.8 mmol/L L=3.5 H=5.1 2823-3 LOINC CHLORIDE 106 mmol/L L=98 H=107 2075-0 LOINC CO2 30.0 mmol/L L=22.0 H=30.0 8-9 LOINC ANION GAP 9 L=10 H=20 14201-7 LOINC L OSMOLALITY 297 mOs/kG L=280 H=296 12170-8 LOINC H BUN/CREAT 18.0 3097-3 LOINC CALCIUM 9.0 mg/dL L=8.3 H=10.5 36740-8 LOINC AST 34 U/L L=15 H=46 1920-8 LOINC ALT 41 U/L L=9 H=72 1742-6 LOINC ALKALINE PHOS 85 U/L L=38 H=126 6768-6 LOINC TOTAL BILI 0.5 mg/dL L=0.2 H=1.3 1975-2 LOINC ALBUMIN 4.1 G/dL L=3.5 H=5.0 1751-7 LOINC TOTAL PROTEIN 7.3 g/L L=6.3 H=8.2 2885-2 LOINC A/G RATIO 1.3 27399-8 LOINC AGE 58 34766-7 LOINC eGFR NON-AFR 82 ml/min eGFR AFR AMER 99 ml/min LIPASE - Collect Date/Time: 02/19/2024 17:38 [facility] ID: [id number] [address] [place], [place], [address] LOINC: 3040-3 Test Value Unit Reference Range Code Code System Flag LIPASE 48 U/L L=23 H=300 3040-[address] ABD/PEL W/ CONTRAST - Com pleted: 02/19/2024 18:13 LOINC: 01265-6 EXAM DESCRIPTION: CT ABD/PEL W/ CONTRAST REASON [...] 6:30 PM - Electronically signed by Billy Alexanrde M.D. KH: NEW Report ID: [id number] Reading Location: [place] [address] CT CHEST PE ANGIO W/ CONTRAS T - Completed: 02/19/2024 18:13 LOINC: 90652-5 EXAM DESCRIPTION: CT CHEST PE ANGIO W/ [...] Billy Alexandre M.D. KH: NEW Report ID: [id number] Reading Location: [place] [address] Social History Type Status Start Date End Date Code Code Syst em Smoking History Never smoker (Never Smoked) [id number] SNOMED CT Sex Male Hospital Discharge Instructions [...]
== END 2024-12-23 06:58 | disposition home or self-care (01) ==
PROVIDERS: PCP Family Medicine; Visit Provider Nurse Practitioner Family
DX: N20.0 Calculus of kidney (principal); N40.0 Benign prostatic hyperplasia without lower urinary tract symptoms; Z87.442 Personal history of urinary calculi
CPT/HCPCS: 74176

== ENCOUNTER 2024-12-30 15:46 | Outpatient (CLI) | payer OTHER, SELFPAY ==
--- NOTE | ~2024-12-30 | XR_ITS ---
XR abdomen/kub 1V Ordering provider: Elmira Uriarte APRN History: . R10.9 - Unspecified abdominal pain . Comparison: April 03, 2023 FINDINGS: BOWEL: Nonobstructive bowel gas pattern. ORGANOMEGALY: None. SIGNIFICANT PATHOLOGIC CALCIFICATIONS: None. OTHER: No free air is seen under the diaphragm. IMPRESSION: NO ACUTE ABDOMINAL FINDINGS. Reviewed, dictated and finalized at location A.
--- OUTSIDE RECORDS SUMMARY | 2024-12-30 17:31 | XMS_ITS | Clinical Summary ---
Author Organization [facility] Address [address] [facility] [place] [address] Care Team Providers Care Helicopter Specialist Name Role Phone Unknown, Provider Primary Care Provider Unavaila ble Source Comments [facility],non-owned Affiliates and Associated Physician Practices is amultiple site organization consisting of ambulatory clinics and hospital sitesin [place], [place], [place] and [place]. This disclosure is being madepursuant to the Care Everywhere program and may not contain all information available regarding this patient. Last updated 18.[facility] [employer] Social History Tobacco Use Types Packs/Day Years [...] patient's age to complete this topic Insurance [facility] Care Teams Helicopter Specialist Relationship Specialty Start Date End Date Unknown, Provider PCP - General 07/13/24
--- OUTSIDE RECORDS SUMMARY | 2024-12-30 17:31 | XMS_ITS | Clinical Summary ---
Author Organization [facility] Address [address] [place] [address] Care Team Providers Care Manager Cash Name Role Phone John Hernandez MD Primary Care Provider [phone] Allergies Active Allergy Reactions Criticality Noted Date [...] Comments Blood Pressure 131/92 09/04/2022 4:30 PM HEEL TURNER Pulse 78 09/04/2022 4:30 PM HEEL TURNER Temperature 35.9 C (96.7 F) 09/04/2022 2:07 PM HEEL TURNER Respiratory Rate 20 09/04/2022 4:30 PM HEEL TURNER Oxygen Saturation 99% 09/04/2022 4:30 PM HEEL TURNER Inhaled Oxygen Concentration - - Weight 113.4 kg (250 lb) 09/04/2022 2:07 PM HEEL TURNER Height 185.4 cm (6' 1 ) 09/04/2022 2:07 PM HEEL TURNER Body Mass Index 32.98 09/04/2022 2:07 PM HEEL TURNER Plan of Treatment Health Maintenance Due Date Last Done Comments Colorectal Cancer Screening Colonoscopy (10 Years) 1966 Annual Physical 1969 Hepatitis C 1984 DTaP, Tdap and Td Vaccines ( 1 - Tdap) 1985 Hepatitis B Vaccines (1 of 3 - 19+ 3-dose series) 1985 Pneumococcal Vaccine: 50+ Ye ars (1 of 1 - PCV) 2016 Zoster Vaccines (1 of 2) 2016 COVID-19 [...] complete this topic Insurance [employer] Care Teams Manager Cash Relationship Specialty Start Date End Date John Hernandez MD [address] [place] [address] PCP - General FAMILY PRACTICE 05/19/21
--- OUTSIDE RECORDS SUMMARY | 2024-12-30 17:32 | XMS_ITS ---
Author Organization Unknown Address [address] [place] [phone] Phone Care Team Providers Care Box Chipper Name Role Phone ENGLE YOLANDA Attending Unavailable NO PCP Primary Unavailable Immunization Immunization Date Status Additional Notes Code Code System influenza, split (incl. purified surface antigen) 06/08/2013 Completed 15 CV X Influenza, split virus, quadrivalent, PF 07/07/2020 Completed 150 CVX Influenza, split virus, quadrivalent, PF 08/10/2022 Completed 150 CVX Influenza, recombinant, quadrivalent, PF 07/26/2021 Completed 185 CVX Results URINALYSIS w/Microscopy/C&S if indicated - Collect Date/Time: 02/19/2024 17:48 [facility] ID: [id number] [address] [place] [address], [id number] LOINC: 29194-0 Test Value Unit Reference Range Code Code System Flag UR SOURCE VOIDED 47573-5 LOINC COLOR YELLOW YELLOW 5778-6 LOINC CLARITY CLEAR CLEAR 38700-5 LOINC SPEC GRAVITY >=1.030 1.000-1.030 5811-5 LOINC A PH 5.5 5.0 - 6.5 5803-2 LOINC LEUK EST NEGATIVE NEGATIVE 5799-2 LOINC NITRATE NEGATIVE NEGATIVE PROTEIN NEGATIVE NEGATIVE 5804-0 LOINC GLUCOSE NEGATIVE NEGATIVE 05801-5 LOINC KETONES NEGATIVE NEGATIVE 44151-9 LOINC UROBILINOGEN 1.0 NEGATIVE 5818-0 LOINC BILIRUBIN NEGATIVE NEGATIVE 02143-1 LOINC BLOOD TRACE-ZAHEER NEGATIVE 21586-4 LOINC WBC 2-5 0 - 2 91244-6 LOINC RBC 2-5 0 - 2 20593-5 LOINC EPITHELIAL OCCASIONA RARE-FEW 43137-0 LOINC BACTERIA FEW NONE SEEN 94730-4 LOINC MUCUS FEW NONE SEEN 8247-9 LOINC YEAST NOT PRESENT NOT PRESENT 31443-5 LOINC CASTS NONE SEEN 96925-3 LOINC CRYSTALS NONE SEEN 92353-4 LOINC CULTURE? NO 8251-1 LOINC DIAGNOSIS N/A TROPONIN LEVEL - Collect Artur e/Time: 02/19/2024 17:38 [facility] ID: [id number] [address] [place], [place], [id number] LOINC: 42943-6 Test Value Unit Reference Range Code Code System Flag TROPONIN < 0.012 ng/mL L=0.000 H=0.033 79459-6 LOINC CBC W/ DIFF - Collect Date/T jose manuel: 02/19/2024 17:38 [facility] ID: [id number] [address] [place], [place], [id number] LOINC: 81842-7 Test Value Unit Reference Range Code Code System Flag WBC 7.0 10^3uL L=4.8 H=10.8 RBC 4.81 10^6uL L=4.60 H=6.20 HEMOGLOBIN 14.4 g/dL L=14.0 H=18.0 718-7 LOINC HEMATOCRIT 42.3 VOL% L=42.0 H=52.0 4544-3 LOINC MCV 87.9 fL L=80.0 H=94.0 MCH 29.9 pg L=27.0 H=32.0 MCHC 34.0 g/dL L=32.0 H=36.0 PLATELETS 234 10^3uL L=100 H=400 85472-9 LOINC RDW 12.5 % L=11.7 H=15.5 %GRAN 65.8 % L=40.0 H=70.0 79932-6 LOINC %LYMPH 23.2 % L=20.0 H=45.0 736-9 LOINC %MONO 7.4 % L=2.0 H=10.0 80428-8 LOINC %EOS 2.7 % L=0.0 H=6.0 713-8 LOINC %BASO 0.6 % L=0.0 H=3.0 706-2 LOINC #NEUT 4.6 10^3uL L=1.9 H=7.6 16379-2 LOINC #LYMPH 1.6 10^3uL L=0.9 H=4.9 58642-7 LOINC #MONO 0.5 10^3uL L=0.1 H=0.9 05505-2 LOINC #EOS 0.2 10^3uL L=0.0 H=0.6 712-0 LOINC #BASO 0.04 10^3uL L=0.00 H=0.10 82771-6 LOINC #IM GRANS 0.0 10^3uL L=0.0 H=7.0 01013-3 LOINC %IM GRANS 0.3 % L=0.0 H=5.0 77254-4 LOINC %NRB 0.0 L=0.0 H=0.2 68322-1 LOINC #NRB 0.000 L=0.000 H=0.012 16034-9 LOINC MANUAL DIFF NOT INDICATED RBC MORPH NOT INDICATED COMPREHENSIVE METABOLIC PANE L - Collect Date/Time: 02/19/2024 17:38 [facility] ID: [id number] [place], [place], [id number] LOINC: 27497-9 Test Value Unit Reference Range Code Code [...] 2028-9 LOINC ANION GAP 9 L=10 H=20 88922-1 LOINC L OSMOLALITY 297 mOs/kG L=280 H=296 80555-2 LOINC H BUN/CREAT 18.0 3097-3 LOINC CALCIUM 9.0 mg/dL L=8.3 H=10.5 88076-2 LOINC AST 34 U/L L=15 H=46 1920-8 LOINC ALT 41 U/L L=9 H=72 1742-6 LOINC ALKALINE PHOS 85 U/L L=38 H=126 6768-6 LOINC TOTAL BILI 0.5 mg/dL L=0.2 H=1.3 1975-2 LOINC ALBUMIN 4.1 G/dL L=3.5 H=5.0 1751-7 LOINC TOTAL PROTEIN 7.3 g/L L=6.3 H=8.2 2885-2 LOINC A/G RATIO 1.3 12055-8 LOINC AGE 58 22839-5 LOINC eGFR NON-AFR 82 ml/min eGFR AFR AMER 99 ml/min LIPASE - Collect Date/Time: 02/19/2024 17:38 [facility] ID: [id number] [place], [place], [id number] LOINC: 3040-3 Test Value Unit Reference Range Code Code System Flag LIPASE 48 U/L L=23 H=300 3040-[address] ABD/PEL W/ CONTRAST - Com pleted: 02/19/2024 18:13 LOINC: 99259-3 EXAM DESCRIPTION: CT ABD/PEL W/ CONTRAST REASON [...] Billy Alexandre M.D. [facility]: NEW Report ID: [id number] Reading Location: [place] [address] CT CHEST PE ANGIO W/ CONTRAS T - Completed: 02/19/2024 18:13 LOINC: 32470-6 EXAM DESCRIPTION: CT CHEST PE ANGIO W/ [...] Billy Alexandre M.D. [facility]: NEW Report ID: [id number] Reading Location: [place] [address] Social History Type Status Start Date End Date Code Code Syst em Smoking History Never smoker (Never Smoked) [id number] SNOMED CT Sex Male Hospital Discharge Instructions [...]
== END 2024-12-30 15:47 | disposition home or self-care (01) ==
PROVIDERS: PCP Family Medicine; Visit Provider Nurse Practitioner Family
DX: R10.9 Unspecified abdominal pain (principal); Z87.442 Personal history of urinary calculi
CPT/HCPCS: 74018